=== PATIENT | female | born 1990 | race Caucasian/White ===

== ENCOUNTER 2019-03-24 10:31 | Emergency (ER) | payer OTHER, SELFPAY ==
[2019-03-24 11:05] VITALS: BP 106/66; PULSE 75; RESP 18; TEMP 36.9; O2SAT 100
--- NOTE | 2019-03-24 11:19 | ED.GENADULT ---
HPI - General Adult General Chief complaint: Upper Respiratory Infection Stated complaint: sore / swollen throat Time Seen by Provider: 03/24/19 11:20 Source: patient and RN notes reviewed Mode of arrival: ambulatory Limitations: no limitations History of Present Illness HPI narrative: This is a 28 years old female presented office for evaluation of sore throat this morning. Symptoms began with nasal congestion for 1 week. Denies fever, vomiting or diarrhea. Denies sick contact. She does smoke half a pack a day. She would like a work excuse.No treatment prior to arrival. Related Data Home Medications Medication Instructions Recorded Confirmed albuterol sulfate 1 inh INHALATION QID PRN 03/24/19 03/24/19 Allergies Allergy/AdvReac Type Severity Reaction Status Date / Time No Known Allergies Allergy Verified 03/24/19 11:14 Review of Systems Review of Systems: Narrative: CONSTITUTIONAL: Denies fever ENT: Denies ears pain CARDIOVASCULAR: Denies chest pain RESPIRATORY: Denies dyspnea, wheezing GASTROINTESTINAL: Denies abdominal pain, nausea, vomiting GENITOURINARY: Denies urinary symptoms SKIN: Denies rash MUSCULOSKELETAL: Denies acute back pain, joint pain, or myalgia. NEUROLOGIC: Denies numbness, or focal weakness. PMFSH Social History Social History (Updated 03/24/19 @ 11:26 by MICKIE Rosario) Smoking packs per day: 0.5 Smoking cigarettes per day: 10.0 Smoking status: Current every day smoker Comments At time of signature, I agree with nursing past medical, surgical, social and family history. There is no relevant family history pertinent to the presenting complaint. Exam Narrative: Exam Narrative: GENERAL: This is a well-nourished, well-developed patient, in no apparent distress. EYES: Sclera clear/white. Vision is grossly intact. EARS: External ears normal, auditory canals clear and without drainage, TMs normal without perforation. Hearing grossly intact. NOSE: External nose normal with no obvious nasal discharge, nares without redness, no rhinorrhea. THROAT: Mucous membranes moist, posterior pharynx clear wth drainage NECK: Neck supple, non-tender without lymphadenopathy, masses or thyromegaly. CARDIOVASCULAR: Regular rate and rhythm without murmurs, gallops, or rubs. RESPIRATORY: Clear to auscultation. Breath sounds equal bilaterally. No wheezes, rales, or rhonchi. GASTROINTESTINAL: Abdomen soft, non-tender, nondistended. Bowel sounds are active. No hepato-splenomegaly, or palpable masses. No guarding. SKIN: warm, intact with no suspicious lesions or rash, good texture and turgor. NEURO: awake, alert, and oriented to person, place and time. There were no obvious focal neurologic abnormalities. Steady gait [place] Coma Scale Eye Opening: Spontaneous 4 [place] Coma Scale Motor: Obeys Commands 6 [place] Coma Scale Verbal: Oriented 5 Course Vital Signs Vital signs: Vital Signs Temperature 98.5 F 03/24/19 11:05 Pulse Rate 75 03/24/19 11:05 Respiratory Rate 18 03/24/19 11:05 Blood Pressure 106/66 03/24/19 11:05 Pulse Oximetry 100 03/24/19 11:05 Temperature 98.5 F 03/24/19 11:05 Pulse Rate 75 03/24/19 11:05 Respiratory Rate 18 03/24/19 11:05 Blood Pressure 106/66 03/24/19 11:05 Pulse Oximetry 100 03/24/19 11:05 Medical Decision Making MDM Narrative Medical decision making narrative: Discharge instructions reviewed with patient, as well as provided in writing per nursing staff. The instructions also include specific and strict return/GO TO THE ER as well as f/u information. All questions have been answered, and the patient deny any further questions with discharge and discharge plan. Differential Diagnosis Differential Diagnosis: pneumonia, Allergic Rhinitis, Upper respiratory cough syndrome, Pharyngitis, Sinusitis, Bronchitis, otitis media, viral URI, Asthma/reactive airway disease, influenza Vital Signs Vital Signs: Vital Signs Tempera
== END 2019-03-24 11:30 | disposition home or self-care (01) ==
PROVIDERS: Emergency Provider Nurse Practitioner
DX: J06.9 Acute upper respiratory infection, unspecified (principal); R05 Cough; F17.200 Nicotine dependence, unspecified, uncomplicated; J45.909 Unspecified asthma, uncomplicated
CPT/HCPCS: 87081; 87880; 99213; G0463

== ENCOUNTER 2019-04-30 13:06 | Emergency (ER) | payer OTHER, SELFPAY ==
--- NOTE | 2019-04-30 13:10 | ED.FEMALEGU ---
HPI - Female Genitourinary General Chief complaint: Urogenital-Female Stated complaint: Possible Bladder infection Time Seen by Provider: 04/30/19 13:22 Source: patient and RN notes reviewed Mode of arrival: ambulatory Limitations: no limitations History of Present Illness HPI Narrative: 28-year-old female presents with concern for dysuria, frequency, urgency that started this morning. Reports taking Azo and is also currently on her menstrual period. Patient reports taking Azo 2 hours ago. MD elicited complaint: UTI Related Data Allergies Allergy/AdvReac Type Severity Reaction Status Date / Time No Known Allergies Allergy Verified 03/24/19 11:14 Review of Systems Review of Systems: Narrative: CONSTITUTIONAL: Denies malaise, chills, sweats, or fever. CARDIOVASCULAR: Denies chest pain, palpitations RESPIRATORY: Denies cough or dyspnea. GASTROINTESTINAL: Denies abdominal pain, nausea, vomiting, diarrhea GENITOURINARY: Reports dysuria, frequency, urgency, flank pain. Reports being on her menstrual period SKIN: Denies rash or itching. MUSCULOSKELETAL: Reports low back pain. Denies joint pain, or myalgia. NEUROLOGIC: Denies headache. All systems reviewed & are unremarkable except as noted in HPI and below PMFSH Social History Social History (Updated 03/24/19 @ 11:26 by MICKIE Rosario) Smoking packs per day: 0.5 Smoking cigarettes per day: 10.0 Smoking status: Current every day smoker Comments At time of signature, agree with nursing past medical, surgical, social and family history. There is no relevant family history pertinent to the presenting complaint Exam Narrative: Exam Narrative: GENERAL: Well-appearing, well-nourished, and in no acute distress. HEAD: Normocephalic. EYES: PERRLA, conjunctivae clear. NECK: Supple. No lymphadenopathy CHEST: Clear to auscultation. No respiratory distress. HEART: Regular rate and rhythm. No murmur heard. Normal peripheral pulses. ABDOMEN: Soft, nontender upon palpation, nondistended, normal active bowel sounds, no palpable or pulsatile masses, no guarding. No CVA tenderness SKIN: Warm, dry, no rash. NEURO: Alert and oriented x3. PSYCH: Normal mood and affect Course Course Emergency Course: Patient is aware of diagnosis, understands and agrees to treatment plan. Anticipatory guidance given. Patient agrees to follow-up as directed and is aware of reasons to seek care at the emergency department. Portions of this record may have been created with voice recognition software Vital Signs Vital signs: Vital Signs Temperature 98.3 F 04/30/19 13:15 Pulse Rate 83 04/30/19 13:15 Respiratory Rate 14 04/30/19 13:15 Blood Pressure 116/69 04/30/19 13:15 Pulse Oximetry 100 04/30/19 13:15 Temperature 98.3 F 04/30/19 13:15 Pulse Rate 83 04/30/19 13:15 Respiratory Rate 14 04/30/19 13:15 Blood Pressure 116/69 04/30/19 13:15 Pulse Oximetry 100 04/30/19 13:15 Reviewed. MDM - Female Genitourinary MDM Narrative Medical decision making narrative: Exam findings and UA show no acute concerns or changes; patient is non-toxic appearing and is in no distress. Patient is appropriate for outpatient treatment and follow-up. Differential Diagnosis Differential diagnosis: Likely urinary tract infection, vaginitis and cystitis Lab Data Attestation: I reviewed the patient's lab results. Critical Care Time Critical Care Time Critical Care Time: No Discharge Plan Discharge Clinical Impression: Symptoms of urinary tract infection Patient Disposition: Home, Self-Care Condition: Stable Instructions: Antibiotic Form, Urinary Tract Infection in Women (ED) Additional Instructions: We will send a urine culture off to the lab; if the culture identifies an organism that the prescribed antibiotic will not treat, you will receive a phone call from an urgent care staff member and an appropriate antibiotic will be prescribed. -Your symptoms should begin
[2019-04-30 13:15] VITALS: BP 116/69; PULSE 83; RESP 14; TEMP 36.8; O2SAT 100
== END 2019-04-30 13:30 | disposition home or self-care (01) ==
PROVIDERS: Emergency Provider Nurse Practitioner
DX: R30.0 Dysuria (principal); R35.0 Frequency of micturition; R39.15 Urgency of urination; F17.210 Nicotine dependence, cigarettes, uncomplicated
CPT/HCPCS: 81003; 87086; 99213; G0463

== ENCOUNTER 2020-10-19 15:01 | Emergency (ER) | payer OTHER, SELFPAY ==
--- NOTE | 2020-10-19 15:03 | ED.URI ---
HPI - URI/Sore Throat General Chief Complaint: Upper Respiratory Infection Stated Complaint: fever headache chills fatigue Time Seen by Provider: 10/19/20 15:37 Source: patient and RN notes reviewed Mode of arrival: ambulatory Limitations: no limitations History of Present Illness HPI Narrative: 30-year-old female presents with acute cough. Reports symptoms started yesterday with nasal drainage, persistent cough, body aches, headache. Reports a fever of 102.7. Reports she is taken [id number] medications. Reports she did 2 rapid strep test at home today which were negative. She denies any known sick contacts. She was not vaccinated for Covid. She denies shortness of breath, loss of sense of taste or smell. MD elicited complaint: fever Related Data Allergies Allergy/AdvReac Type Severity Reaction Status Date / Time No Known Allergies Allergy Verified 10/19/20 15:25 Review of Systems Review of Systems: CONSTITUTIONAL: Reports malaise, chills, fever. EYES: Denies visual changes, redness, or discharge. ENT: Reports rhinorrhea, congestion, sinus pain, otalgia and sore throat. CARDIOVASCULAR: Denies chest pain, palpitations, or edema. RESPIRATORY: Reports persistent cough. Denies dyspnea. GASTROINTESTINAL: Denies abdominal pain, nausea, vomiting, diarrhea SKIN: Denies rash or itching. MUSCULOSKELETAL: Reports myalgia. NEUROLOGIC: Reports headache. All systems reviewed & are unremarkable except as noted in HPI and below PMFSH Social History Social History (Updated 03/24/19 @ 11:26 by MICKIE Rosario) Smoking packs per day: 0.5 Smoking cigarettes per day: 10.0 Smoking status: Current every day smoker Comments At time of signature, agree with nursing past medical, surgical, social and family history. There is no relevant family history pertinent to the presenting complaint Exam Narrative: GENERAL: Well-appearing, well-nourished, and in no acute distress. HEAD: Normocephalic EYES: PERRLA, conjunctivae clear ENT: Nares clear, clear discharge. Mucous membranes moist. TM pearly varner with sharp light reflex bilaterally; no tragal tenderness. Oropharynx not erythematous without lesions. Tonsils not enlarged and without exudate, no drooling, no hoarseness, no trismus, uvula midline. NECK: Supple. No lymphadenopathy CHEST: Clear to auscultation, breath sounds equal. No wheezing, rhonchi, rales, or stridor. No respiratory distress, speaks in full sentences. Persistent cough noted HEART: Regular rate and rhythm. No murmur heard. SKIN: Warm, dry, no rash. NEURO: Alert and oriented x3. PSYCH: Normal mood and affect Course Course Emergency Course: Patient is aware of diagnosis, understands and agrees to treatment plan. Anticipatory guidance given. Patient agrees to follow-up as directed and is aware of reasons to seek care at the emergency department. Portions of this record may have been created with voice recognition software Vital Signs Vital signs: Reviewed. MDM - URI/Sore Throat MDM Narrative Medical decision making narrative: Differential diagnosis considered: Mauricio virus, strep pharyngitis, allergic rhinitis, upper respiratory tract infection, sinusitis, rhinosinusitis, nasopharyngitis. viral pharyngitis, otitis media, otitis externa, pneumonia, bronchitis, viral cough syndrome, viral syndrome, and influenza. Exam findings show no acute concerns or changes; patient is non-toxic appearing and is in no distress. Patient is appropriate for outpatient treatment and follow-up. Lab Data Attestation: I reviewed the patient's lab results. Critical Care Time Critical Care Time Critical Care Time: No Discharge Plan Discharge Clinical Impression: Cough Patient Disposition: Home, Self-Care Condition: Stable Instructions: Acute Cough (ED) Additional Instructions: PCR Covid test is pending, you should assume that your symptoms could be contagious and he received results. Strep throat culture will be sen
[2020-10-19 15:11] VITALS: BP 125/101; PULSE 96; RESP 20; TEMP 36.9; O2SAT 100
[2020-10-20 19:18] LABS: SARS-CoV-2 RNA PCR Positive
== END 2020-10-19 15:52 | disposition home or self-care (01) ==
PROVIDERS: Emergency Provider Nurse Practitioner; PCP Nurse Practitioner Family
DX: U07.1 COVID-19 (principal); F17.210 Nicotine dependence, cigarettes, uncomplicated; J45.909 Unspecified asthma, uncomplicated
CPT/HCPCS: 87081; 87426; 87880; 99213; C9803; G0463; U0003; U0005

== ENCOUNTER 2021-01-17 13:44 | Emergency (ER) | payer OTHER, SELFPAY ==
--- NOTE | 2021-01-17 13:47 | ED.URI ---
HPI - URI/Sore Throat General Chief Complaint: Upper Respiratory Infection Stated Complaint: Sore Throat/ Dizziness/Headache Time Seen by Provider: 01/17/21 13:47 Source: patient and RN notes reviewed History of Present Illness HPI Narrative: Patient is a 30-year-old female who presents the urgent care with complaints of sore throat, dizziness and headache. Patient was able to drive to the facility and is ambulating without difficulty. Patient states that everyone in her house is sick with upper respiratory stuff . Patient denies of any fever, nausea, vomiting. Denies of any known exposures to Covid, strep or influenza. Patient states that she did have Covid 2 months ago. Patient has been taking TheraFlu for her symptoms. No other acute complaints. No acute distress noted. Patient read the plan of care. Some parts of this dictation were generated by voice recognition software and may contain typographical and/or grammatical inaccuracies. Related Data Home Medications Medication Instructions Recorded Confirmed bupropion HCl mg PO 01/17/21 quetiapine 01/17/21 trazodone 01/17/21 Allergies Allergy/AdvReac Type Severity Reaction Status Date / Time No Known Allergies Allergy Verified 01/17/21 14:05 Review of Systems Review of Systems: CONSTITUTIONAL: Denies fever, chills, or sweats. EYES: Denies visual changes, redness, or discharge. ENT: Denies rhinorrhea, congestion, otalgia. Reports of sore throat CARDIOVASCULAR: Denies chest pain, palpitations, or edema. RESPIRATORY: Denies cough or dyspnea. GASTROINTESTINAL: Denies abdominal pain, nausea, vomiting, or diarrhea. GENITOURINARY: Denies dysuria or hematuria. SKIN: Denies rash or itching. MUSCULOSKELETAL: Denies back pain, joint pain, or myalgia. NEUROLOGIC: Reports of intermittent headaches and dizziness All other systems reviewed are negative, except as documented in HPI. PMFSH Social History Social History (Updated 03/24/19 @ 11:26 by MICKIE Rosario) Smoking packs per day: 0.5 Smoking cigarettes per day: 10.0 Smoking status: Current every day smoker Comments At the time of my signature, I reviewed and agree with the nursing past medical, surgical, social, and family history. There is no relevant family history pertinent to the patient complaint. Exam Narrative: GENERAL: This is a well-nourished, well-developed patient, in no apparent distress. HEAD: normocephalic, atraumatic. EYES: PERRL. Sclera clear/white. Vision is grossly intact. EARS: External ears normal, auditory canals clear and without drainage, TMs normal without perforation. Hearing grossly intact. NOSE: External nose normal with no obvious nasal discharge, nares without redness, no rhinorrhea. THROAT: Mucous membranes moist, posterior pharynx clear. Moderate postnasal drainage NECK: Neck supple CARDIOVASCULAR: Regular rate and rhythm without murmurs, gallops, or rubs. RESPIRATORY: Clear to auscultation. Breath sounds equal bilaterally. No wheezes, rales, or rhonchi. SKIN: warm, intact with no suspicious lesions or rash, good texture and turgor. NEURO: awake, alert, and oriented to person, place and time. There were no obvious focal neurologic abnormalities. EXTREMITIES: No clubbing, cyanosis, or edema. Course Vital Signs Vital signs: Vital Signs Temperature 97.8 F 01/17/21 13:58 Pulse Rate 89 01/17/21 13:58 Respiratory Rate 18 01/17/21 13:58 Blood Pressure 131/87 01/17/21 13:58 Pulse Oximetry 100 01/17/21 13:58 Temperature 97.8 F 01/17/21 13:58 Pulse Rate 89 01/17/21 13:58 Respiratory Rate 18 01/17/21 13:58 Blood Pressure 131/87 01/17/21 13:58 Pulse Oximetry 100 01/17/21 13:58 Reviewed MDM - URI/Sore Throat MDM Narrative Medical decision making narrative: Reviewed lab results with the patient. She is aware that strep swab was negative. Educated patient on culture and we will call within 72 hours if culture is positive antibioti
[2021-01-17 13:58] VITALS: BP 131/87; PULSE 89; RESP 18; TEMP 36.6; O2SAT 100
== END 2021-01-17 14:27 | disposition home or self-care (01) ==
PROVIDERS: Emergency Provider Nurse Practitioner Family; PCP Nurse Practitioner Family
DX: J02.9 Acute pharyngitis, unspecified (principal); J45.909 Unspecified asthma, uncomplicated
CPT/HCPCS: 87081; 87880; 99213; G0463

== ENCOUNTER 2021-03-09 15:43 | Emergency (ER) | payer OTHER, SELFPAY ==
[2021-03-09 15:46] VITALS: BP 113/55; PULSE 95; RESP 16; TEMP 37.1; O2SAT 100
--- NOTE | 2021-03-09 15:55 | ED.URI ---
HPI - URI/Sore Throat General Chief Complaint: Upper Respiratory Infection Stated Complaint: aches heavy chest sore throat Time Seen by Provider: 03/09/21 15:59 Source: patient History of Present Illness HPI Narrative: Patient woke up with this morning with scratchy throat runny nose and occasional cough. Patient states she has been exposed to COVID-19 through her workplace and was instructed to come in for evaluation by her employer. Patient's symptoms started approximately 8 hours ago. Patient has not take anything [id number] for her symptoms. MD elicited complaint: nasal congestion Related Data Home Medications Medication Instructions Recorded Confirmed bupropion HCl 150 mg PO DAILY 01/17/21 03/09/21 quetiapine 100 mg PO DAILY 01/17/21 03/09/21 trazodone 100 mg PO DAILY 01/17/21 03/09/21 Allergies Allergy/AdvReac Type Severity Reaction Status Date / Time No Known Allergies Allergy Verified 03/09/21 15:51 Review of Systems Review of Systems: CONSTITUTIONAL: Denies chills, or sweats. Reports fever and generalized body aches EYES: Denies visual changes, redness, or discharge. ENT: Denies otalgia. Reports nasal congestion runny nose and sore throat CARDIOVASCULAR: Denies chest pain, palpitations, or edema. RESPIRATORY: Denies dyspnea. Reports occasional cough GASTROINTESTINAL: Denies abdominal pain, nausea, vomiting, or diarrhea. GENITOURINARY: Denies dysuria or hematuria. SKIN: Denies rash or itching. MUSCULOSKELETAL: Denies back pain, joint pain, or myalgia. Reports generalized body aches NEUROLOGIC: Denies headache, numbness, or weakness. PSYCHIATRIC: Denies anxiety or depression. [facility] Social History Social History (Updated 03/24/19 @ 11:26 by MICKIE Rosario) Smoking packs per day: 0.5 Smoking cigarettes per day: 10.0 Smoking status: Current every day smoker Comments CONSTITUTIONAL: Denies fever, chills, or sweats. EYES: Denies visual changes, redness, or discharge. ENT: Denies rhinorrhea, congestion, sore throat, or otalgia. CARDIOVASCULAR: Denies chest pain, palpitations, or edema. RESPIRATORY: Denies cough or dyspnea. GASTROINTESTINAL: Denies abdominal pain, nausea, vomiting, or diarrhea. GENITOURINARY: Denies dysuria or hematuria. SKIN: Denies rash or itching. MUSCULOSKELETAL: Denies back pain, joint pain, or myalgia. NEUROLOGIC: Denies headache, numbness, or weakness. PSYCHIATRIC: Denies anxiety or depression. Exam Narrative: The patient is a well-developed, well-nourished in no acute distress. SKIN: Skin is warm and dry without erythema, swelling or exudate. There is good turgor. No tenting. HEAD: Atraumatic. Normocephalic. No temporal or scalp tenderness. EYES: Moist and bright. Sclera and conjunctivae normal. No discharge. PERRLA. Extraocular motions intact. Gross visual acuity intact. EARS: Pinna is normal shape and contour. Clear external auditory canals. TM pearly brown with good cone of light, no erythema or suppuration. Bilateral cerumen noted no gross hearing deficit. NOSE: pink, moist mucosa with good air movement. Clear rhinorrhea without nasal flaring. Septum midline. Mouth: moist mucous membranes. THROAT; mild erythema noted to posterior oropharynx with moderate postnasal drainage. Without exudate or ulceration.. Uvula midline. Normal movement of soft palate. NECK: Supple and nontender with full range of motion without discomfort. No meningeal signs. LUNGS: Equal and bilateral breath sounds without wheezes, rales or rhonchi. CHEST: The chest wall is without retractions or use of accessory muscles. HEART: Has a regular rate and rhythm without murmur, gallops, click or rub. ABDOMEN: Soft, nontender with positive active bowel sounds. No rebound tenderness. EXTREMITIES: Without cyanosis, clubbing or edema. Equal 2+ distal pulses and 2 second capillary refill noted. NEUROLOGIC: alert, active, . The patient moves all extremities with normal muscle strength. Normal muscle tone is n
== END 2021-03-09 16:05 | disposition home or self-care (01) ==
PROVIDERS: Emergency Provider Nurse Practitioner Family; PCP Nurse Practitioner Family
DX: J06.9 Acute upper respiratory infection, unspecified (principal); B34.9 Viral infection, unspecified; Z20.822 Contact with and (suspected) exposure to COVID-19; F17.210 Nicotine dependence, cigarettes, uncomplicated
CPT/HCPCS: 99211; G0463

== ENCOUNTER 2021-05-22 09:43 | Emergency (ER) | payer OTHER, SELFPAY ==
[2021-05-22 09:48] VITALS: BP 116/84; PULSE 109; RESP 20; TEMP 36.7; O2SAT 100
--- NOTE | 2021-05-22 10:07 | ED.URI ---
HPI - URI/Sore Throat General Chief Complaint: Upper Respiratory Infection Stated Complaint: Cough Time Seen by Provider: 05/22/21 10:18 Source: patient and RN notes reviewed Mode of arrival: ambulatory Limitations: no limitations History of Present Illness HPI Narrative: 30-year-old female presents concern for cough, chest congestion that started on . She also reports nasal congestion, rhinorrhea. Denies sore throat, body aches, chills, fever, sweats. Reports she had fever the first 2 days of illness. She denies any known sick contacts. She reports has been taking [id number] medication without relief. She reports coughing fits, one that caused her to vomit. MD elicited complaint: cough and sore throat Related Data Home Medications Medication Instructions Recorded Confirmed bupropion HCl 300 mg PO DAILY 01/17/21 03/09/21 quetiapine 100 mg PO DAILY 01/17/21 05/22/21 sertraline 100 mg PO DAILY 05/22/21 05/22/21 Allergies Allergy/AdvReac Type Severity Reaction Status Date / Time No Known Allergies Allergy Verified 05/22/21 10:12 Review of Systems Review of Systems: CONSTITUTIONAL: Denies malaise, chills, sweats, or fever. EYES: Denies visual changes, redness, or discharge. ENT: Reports rhinorrhea, congestion. Denies sinus pain, otalgia and sore throat. CARDIOVASCULAR: Denies chest pain, palpitations, or edema. RESPIRATORY: Reports cough, chest congestion. Denies dyspnea. GASTROINTESTINAL: Denies abdominal pain, nausea, vomiting, diarrhea SKIN: Denies rash or itching. MUSCULOSKELETAL: Denies myalgia. NEUROLOGIC: Denies headache. All systems reviewed & are unremarkable except as noted in HPI and below PMFSH Social History Social History (Updated 03/24/19 @ 11:26 by MICKIE Rosario) Smoking packs per day: 0.5 Smoking cigarettes per day: 10.0 Smoking status: Current every day smoker Comments At time of signature, agree with nursing past medical, surgical, social and family history. There is no relevant family history pertinent to the presenting complaint Exam Narrative: GENERAL: Well-appearing, well-nourished, and in no acute distress. HEAD: Normocephalic EYES: PERRLA, conjunctivae clear ENT: Nares clear, turbinates edematous and erythematous, clear discharge. Mucous membranes moist. TM pearly varner with sharp light reflex bilaterally; no tragal tenderness. Oropharynx not erythematous without lesions. Tonsils not enlarged and without exudate, no drooling, no hoarseness, no trismus, uvula midline. NECK: Supple. No lymphadenopathy CHEST: Clear to auscultation, breath sounds equal. No wheezing, rhonchi, rales, or stridor. No respiratory distress, speaks in full sentences. HEART: Regular rate and rhythm. No murmur heard. SKIN: Warm, dry, no rash. NEURO: Alert and oriented x3. PSYCH: Normal mood and affect Course Course Emergency Course: Patient is aware of diagnosis, understands and agrees to treatment plan. Anticipatory guidance given. Patient agrees to follow-up as directed and is aware of reasons to seek care at the emergency department. Portions of this record may have been created with voice recognition software Level of Care: Express Care Visit Vital Signs Vital signs: Vital Signs Temperature 98.1 F 05/22/21 09:48 Pulse Rate 109 H 05/22/21 09:48 Respiratory Rate 20 05/22/21 09:48 Blood Pressure 116/84 05/22/21 09:48 Pulse Oximetry 100 05/22/21 09:48 Temperature 98.1 F 05/22/21 09:48 Pulse Rate 109 H 05/22/21 09:48 Respiratory Rate 20 05/22/21 09:48 Blood Pressure 116/84 05/22/21 09:48 Pulse Oximetry 100 05/22/21 09:48 Reviewed. MDM - URI/Sore Throat MDM Narrative Medical decision making narrative: Differential diagnosis considered: Mauricio virus, strep pharyngitis, allergic rhinitis, upper respiratory tract infection, sinusitis, rhinosinusitis, nasopharyngitis. viral pharyngitis, otitis media, otitis externa, pneumonia, bronchitis, viral coug
== END 2021-05-22 10:30 | disposition home or self-care (01) ==
PROVIDERS: Emergency Provider Nurse Practitioner; PCP Nurse Practitioner Family
DX: J06.9 Acute upper respiratory infection, unspecified (principal); R05.9 Cough, unspecified; F17.210 Nicotine dependence, cigarettes, uncomplicated; J45.909 Unspecified asthma, uncomplicated; F41.9 Anxiety disorder, unspecified; F32.A Depression, unspecified
CPT/HCPCS: 99213; G0463

== ENCOUNTER 2021-10-22 13:29 | Emergency (ER) | payer OTHER, SELFPAY ==
--- NOTE | 2021-10-22 13:32 | ED.URI ---
HPI - URI/Sore Throat General Stated Complaint: cough congestion Time Seen by Provider: 10/22/21 13:32 Source: patient Mode of arrival: ambulatory Limitations: no limitations History of Present Illness HPI Narrative: Ms. Rolon is a 31-year-old female patient presenting to the clinic today with complaints of cough, fever, chills, sore throat, body aches, and nasal congestion. She reports no known exposure to anyone with COVID, flu, or strep. No one else at home is sick. Has not tested herself for COVID. Related Data Home Medications Medication Instructions Recorded Confirmed bupropion HCl 150 mg 24 hr tablet, 300 mg PO DAILY 01/17/21 03/09/21 extended release quetiapine 100 mg tablet 100 mg PO DAILY 01/17/21 05/22/21 sertraline 100 mg tablet 100 mg PO DAILY 05/22/21 05/22/21 Allergies Allergy/AdvReac Type Severity Reaction Status Date / Time No Known Allergies Allergy Verified 05/22/21 10:12 Review of Systems Review of Systems: Pertinent positives per HPI. Patient denies any rash, headache, visual changes, dizziness, shortness of breath, chest pain, palpitations, nausea, vomiting, diarrhea, constipation, abdominal pain, or any urinary issues. PMFSH Social History Social History Smoking packs per day: 0.5 Smoking cigarettes per day: 10.0 Smoking status: Current every day smoker Comments At the time of my signature, I reviewed and agree with the nursing past medical, surgical, social, and family history. There is no relevant family history pertinent to the patient complaint. Exam Narrative: General: Well-developed, well nourished, in no apparent distress Head: Normocephalic, atraumatic Eyes: Pupils equally round and reactive to light bilaterally, EOM intact, sclera and conjunctive clear, no discharge, lids normal Ears: TMs intact and dull, ear canals clear, no drainage, grossly hearing normal. Nose: Nares patent, clear nasal discharge, no inflammation, no sinus tenderness. Mouth: Oropharynx without lesions or masses, good dentition, MMM. Neck: Supple, trachea midline, no enlargement of anterior or posterior cervical nodes, no thyroid masses or goiter palpable. Cardio: Regular rate and rhythm, s1 and s2 normal, no murmur appreciated. Resp: Clear to auscultation bilaterally anteriorly and posteriorly, no rhonchi, rales, wheezing or rubs Course Course Emergency Course: Portions of this record may have been created with voice recognition software. Level of Care: Express Care Visit Vital Signs Vital signs: Vital signs reviewed MDM - URI/Sore Throat MDM Narrative Medical decision making narrative: At the time of visit patient is resting comfortably on the exam table. COVID testing was completed in the clinic and was negative. I suspect the patient has upper respiratory infection/viral syndrome. Supportive measures were discussed with the patient she voiced understanding of discharge instructions and agrees to the treatment plan. Differential Diagnosis Differential diagnosis: Likely upper respiratory infection, otitis media, sinusitis, viral infection, bronchitis, influenza, pharyngitis and other (COVID) Discharge Plan Discharge Clinical Impression: Viral syndrome Upper respiratory infection Qualifiers: URI type: unspecified viral URI Qualified Code(s): J06.9 - Acute upper respiratory infection, unspecified Patient Disposition: Home, Self-Care Condition: Stable Instructions: Antibiotic Form, Upper Respiratory Infection (ED), Viral Syndrome (ED) Additional Instructions: COVID testing was completed in the clinic today and was negative. Increase fluids and stay well hydrated Tylenol/motrin for pain/fever Flonase and OTC antihistamines as directed Vicks vapor rub to open sinuses Sinus rinses for congestion Cepacol spray, cough drops, throat lozenges, warm tea with honey/lemon, gargle salt water to soothe t
[2021-10-22 13:34] VITALS: BP 107/72; PULSE 88; RESP 20; TEMP 36.9; O2SAT 100
== END 2021-10-22 14:13 | disposition home or self-care (01) ==
PROVIDERS: Emergency Provider Nurse Practitioner Family; PCP Nurse Practitioner Family
DX: B34.9 Viral infection, unspecified (principal); J06.9 Acute upper respiratory infection, unspecified; F17.210 Nicotine dependence, cigarettes, uncomplicated; Z20.822 Contact with and (suspected) exposure to COVID-19
CPT/HCPCS: 87426; 99213; C9803; G0463

== ENCOUNTER 2021-12-11 08:45 | Emergency (ER) | payer OTHER, SELFPAY ==
--- NOTE | 2021-12-11 08:49 | ED.URI ---
HPI - URI/Sore Throat General Chief Complaint: Upper Respiratory Infection Stated Complaint: Sore Throat Time Seen by Provider: 12/11/21 08:49 Source: patient and RN notes reviewed History of Present Illness HPI Narrative: Patient is a 31-year-old female who presents the urgent care with complaints of a sore throat and cough. Patient brought all 3 of her children and on Saturday and they were negative for RSV and influenza. Patient states they do seem to be doing better today and did go to school. Denies of any fevers. Patient denies any nausea or vomiting. States that she has been taking Mucinex and using cough drops. No other acute complaints. No acute distress noted. Patient aware of the plan of care. Some parts of this dictation were generated by voice recognition software and may contain typographical and/or grammatical inaccuracies. Related Data Home Medications Medication Instructions Recorded Confirmed bupropion HCl 150 mg 24 hr tablet, 300 mg PO DAILY 01/17/21 12/11/21 extended release quetiapine 100 mg tablet 100 mg PO DAILY 01/17/21 12/11/21 sertraline 100 mg tablet 100 mg PO DAILY 05/22/21 12/11/21 Allergies Allergy/AdvReac Type Severity Reaction Status Date / Time No Known Allergies Allergy Verified 12/11/21 08:58 Review of Systems Review of Systems: CONSTITUTIONAL: Denies fever, chills, or sweats. EYES: Denies visual changes, redness, or discharge. ENT: Denies rhinorrhea, congestion, otalgia. Reports of sore throat CARDIOVASCULAR: Denies chest pain, palpitations, or edema. RESPIRATORY: Reports of cough without dyspnea GASTROINTESTINAL: Denies abdominal pain, nausea, vomiting, or diarrhea. GENITOURINARY: Denies dysuria or hematuria. SKIN: Denies rash or itching. MUSCULOSKELETAL: Denies back pain, joint pain, or myalgia. NEUROLOGIC: Denies headache, numbness, or weakness. All other systems reviewed are negative, except as documented in HPI. [facility] Social History Social History Smoking packs per day: 0.5 Smoking cigarettes per day: 10.0 Smoking status: Current every day smoker Comments At the time of my signature, I reviewed and agree with the nursing past medical, surgical, social, and family history. There is no relevant family history pertinent to the patient complaint. Exam Narrative: GENERAL: This is a well-nourished, well-developed patient, in no apparent distress. HEAD: normocephalic, atraumatic. EYES: PERRL. Sclera clear/white. Vision is grossly intact. EARS: External ears normal, auditory canals clear and without drainage, TMs normal without perforation. Hearing grossly intact. NOSE: External nose normal with no obvious nasal discharge, nares without redness, no rhinorrhea. THROAT: Mucous membranes moist. Moderate postnasal drainage NECK: Neck supple, non-tender without lymphadenopathy, masses or thyromegaly. CARDIOVASCULAR: Regular rate and rhythm without murmurs, gallops, or rubs. RESPIRATORY: Harsh cough Exam. Clear to auscultation. Breath sounds equal bilaterally. No wheezes, rales, or rhonchi. SKIN: warm, intact with no suspicious lesions or rash, good texture and turgor. NEURO: awake, alert, and oriented to person, place and time. There were no obvious focal neurologic abnormalities. EXTREMITIES: No clubbing, cyanosis, or edema. Course Course Level of Care: Express Care Visit Vital Signs Vital signs: Vital Signs Temperature 99.0 F 12/11/21 08:54 Pulse Rate 117 H 12/11/21 08:54 Respiratory Rate 20 12/11/21 08:54 Blood Pressure 113/88 12/11/21 08:54 Pulse Oximetry 100 12/11/21 08:54 Oxygen Delivery Room Air 12/11/21 08:54 Temperature 99.0 F 12/11/21 08:54 Pulse Rate 117 H 12/11/21 08:54 Respiratory Rate 20 12/11/21 08:54 Blood Pressure 113/88 12/11/21 08:54 Pulse Oximetry 100 12/11/21 08:54 Oxygen Delivery Room Air 12/11/21 08:54 Reviewed MDM - URI/Sore Thr
[2021-12-11 08:54] VITALS: BP 113/88; PULSE 117; RESP 20; TEMP 37.2; O2SAT 100
== END 2021-12-11 09:19 | disposition home or self-care (01) ==
PROVIDERS: Emergency Provider Nurse Practitioner Family; PCP Nurse Practitioner Family
DX: R05.9 Cough, unspecified (principal); F17.219 Nicotine dependence, cigarettes, with unspecified nicotine-induced disorders; F41.9 Anxiety disorder, unspecified; F32.A Depression, unspecified
CPT/HCPCS: 87081; 87880; 99213; G0463

== ENCOUNTER 2022-06-15 12:30 | Emergency (ER) | payer OTHER, SELFPAY ==
[2022-06-15 12:38] VITALS: BP 130/68; PULSE 86; RESP 16; TEMP 36.8; O2SAT 100
--- NOTE | 2022-06-15 12:46 | ED.DENTAL ---
HPI - Dental/Oral General Chief complaint: Dental/Oral Stated complaint: can hardly open left side mouth Time Seen by Provider: 06/15/22 12:45 Source: patient Mode of arrival: ambulatory Limitations: no limitations History of Present Illness HPI Narrative: 31 year old female presents with concern for facial pain. She reports pain the left thigh of her face front of her jaw. Reports she feels swollen on the inside of her mouth, the tissue on the inside of her cheek has become swollen and she continues to bite it which makes it more swollen. She denies fever, aches, chills, sweats. She denies pain when she chews. She denies redness, warmth of the cheek MD Complaint: tooth pain Related Data Home Medications Medication Instructions Recorded Confirmed bupropion HCl 150 mg 24 hr tablet, 300 mg PO DAILY 01/17/21 06/15/22 extended release sertraline 100 mg tablet 100 mg PO DAILY 05/22/21 06/15/22 buspirone 10 mg tablet 10 mg PO TID 06/15/22 06/15/22 lurasidone 20 mg tablet (Latuda) 20 mg PO DAILY 06/15/22 06/15/22 nicotine 21 mg/24 hr daily 21 mg topical DAILY 06/15/22 06/15/22 transdermal patch trazodone 150 mg tablet mg 06/15/22 Allergies Allergy/AdvReac Type Severity Reaction Status Date / Time No Known Allergies Allergy Verified 06/15/22 12:38 Review of Systems Review of Systems: CONSTITUTIONAL: Denies malaise, chills, sweats, or fever. EYES: Denies visual changes ENT: Denies rhinorrhea, congestion, sinus pain, otalgia or sore throat. Reports pain her mouth, on her left cheek CARDIOVASCULAR: Denies chest pain, palpitations RESPIRATORY: Denies cough or dyspnea. SKIN: Denies rash or itching. MUSCULOSKELETAL: Denies myalgia. NEUROLOGIC: Denies numbness, weakness, or headache. All systems reviewed & are unremarkable except as noted in HPI and below [facility] Social History Social History Smoking packs per day: 0.5 Smoking cigarettes per day: 10.0 Smoking status: Current every day smoker Comments At time of signature, agree with nursing past medical, surgical, social and family history. There is no relevant family history pertinent to the presenting complaint Exam Narrative: GENERAL: Well-appearing, well-nourished, and in no acute distress. HEAD: Normocephalic, atraumatic. EYES: PERRLA, sclera clear ENT: Nares clear, turbinates pink, no rhinorrhea or epistaxis. Mucous membranes moist. TM pearly varner with sharp light reflex bilaterally; no tragal tenderness. Oropharynx without erythema or lesions. Tonsils not enlarged and without exudate. No missing teeth, broken teeth, caries. Mucosal surface on the inside of the left cheek is slightly irritated excoriated. The tissue covering the 3rd molar is slightly erythematous with small amount of purulent drainage noted, tender to touch NECK: Supple. No lymphadenopathy. CHEST: No respiratory distress. Speaks in full sentences. HEART: Regular rate and rhythm. SKIN: Warm, dry, no visible rash. The face has no signs of cellulitis such as redness, warmth, tenderness NEURO: Alert and oriented x3. PSYCH: Normal mood and affect Course Course Emergency Course: Patient is aware of diagnosis, understands and agrees to treatment plan. Anticipatory guidance given. Patient agrees to follow-up as directed and is aware of reasons to seek care at the emergency department. Portions of this record may have been created with voice recognition software Level of Care: Express Care Visit Vital Signs Vital signs: Vital Signs Temperature 98.2 F 06/15/22 12:38 Pulse Rate 86 06/15/22 12:38 Respiratory Rate 16 06/15/22 12:38 Blood Pressure 130/68 06/15/22 12:38 Pulse Oximetry 100 06/15/22 12:38 Oxygen Delivery Room Air 06/15/22 12:38 Temperature 98.2 F 06/15/22 12:38 Pulse Rate 86 06/15/22 12:38 Respiratory Rate 16 06/15/22 12:38 Blood Pressure 130/68 06/15/22 12:38
== END 2022-06-15 13:00 | disposition home or self-care (01) ==
PROVIDERS: Emergency Provider Nurse Practitioner; PCP Nurse Practitioner Family
DX: K04.7 Periapical abscess without sinus (principal); K12.1 Other forms of stomatitis; F17.210 Nicotine dependence, cigarettes, uncomplicated; J45.909 Unspecified asthma, uncomplicated; F41.9 Anxiety disorder, unspecified; F32.A Depression, unspecified; Z86.16 Personal history of COVID-19
CPT/HCPCS: 99213; G0463

== ENCOUNTER 2022-11-05 11:10 | Emergency (ER) | payer OTHER, SELFPAY ==
[2022-11-05 11:20] VITALS: BP 104/79; PULSE 91; RESP 16; TEMP 36.2
[2022-11-05 11:29] VITALS: O2SAT 100
--- NOTE | 2022-11-05 11:42 | ED.URI ---
HPI - URI/Sore Throat General Chief Complaint: Upper Respiratory Infection Stated Complaint: Chest Congestion/Congestion Time Seen by Provider: 11/05/22 11:42 Source: patient, RN notes reviewed and old records reviewed Mode of arrival: ambulatory Limitations: no limitations History of Present Illness HPI Narrative: 32 year old female presents to [facility] care with complaints of 2 day history of cough, chest congestion, reports that it hurts to breath. Patient reports that she has some nasal congestion also and has been using nasal spray. Patient reports that when she lays down she is wheezing, denies any acute shortness of breath or any body aches or fevers. Patient reports past history of bronchitis and asthma. MD elicited complaint: cough and other (chest congestion and wheezing) Pertinent past history: asthma and other (bronchitis) Onset (ago): day(s) (2) Able to tolerate fluids by mouth: Yes Treatments prior to arrival: other (nasal spray) Related Data Home Medications Medication Instructions Recorded Confirmed bupropion HCl 150 mg 24 hr tablet, 300 mg PO DAILY 01/17/21 06/15/22 extended release sertraline 100 mg tablet 100 mg PO DAILY 05/22/21 06/15/22 buspirone 10 mg tablet 10 mg PO TID 06/15/22 06/15/22 lurasidone 20 mg tablet (Latuda) 20 mg PO DAILY 06/15/22 06/15/22 trazodone 150 mg tablet mg 06/15/22 Allergies Allergy/AdvReac Type Severity Reaction Status Date / Time No Known Allergies Allergy Verified 06/15/22 12:38 Review of Systems Review of Systems: CONSTITUTIONAL: Denies malaise, chills, sweats, or fever. EYES: Denies visual changes, redness, or discharge. ENT: Reports rhinorrhea, congestion, no sinus pain, otalgia, or sore throat. CARDIOVASCULAR: Denies chest pain, palpitations, or edema. RESPIRATORY: Reports cough.? Denies dyspnea, reports wheezing GASTROINTESTINAL: Denies abdominal pain, nausea, vomiting, diarrhea SKIN: Denies rash or itching. MUSCULOSKELETAL: Denies myalgia. NEUROLOGIC: Denies headache. All systems reviewed & are unremarkable except as noted in HPI and below PMFSH Past Medical History Medical History (Updated 11/06/22 @ 09:53 by Jenna Navas NP) Anxiety and depression Asthma COVID-19 11/2021 UTI (urinary tract infection) Surgical History Surgical History (Updated 11/06/22 @ 09:51 by Jenna Navas NP) Hx of appendectomy Social History Social History (Updated 11/06/22 @ 09:53 by Jenna Navas NP) Smoking packs per day: 0.5 Smoking cigarettes per day: 10.0 Smoking status: Current every day smoker Alcohol intake: unknown Substance use: unknown Gender identity (if verbalized by the patient): Female Comments At time of signature, agree with nursing past medical, surgical, social and family history. There is no relevant family history pertinent to the presenting complaint Exam Narrative: GENERAL: Well-appearing, well-nourished, and in no acute distress. HEAD: Normocephalic EYES: PERRLA, conjunctivae clear ENT: Nares clear, turbinates edematous and erythematous, clear discharge. Mucous membranes moist. TM pearly varner with dull light reflex bilaterally; no tragal tenderness. Oropharynx erythematous without lesions. Tonsils not enlarged and without exudate, no drooling, no hoarseness, no trismus, uvula midline.post nasal drainage NECK: Supple. No lymphadenopathy CHEST: wheezes on auscultation, breath sounds equal.positive for wheezing,no rhonchi, rales, or stridor. No respiratory distress, speaks in full sentences.cough, SAO2 100% on room air HEART: Regular rate and rhythm. No murmur heard. SKIN: Warm, dry, no rash. NEURO: Alert and oriented x3. PSYCH: Normal mood and affect Course Course Emergency Course: Patient is aware of diagnosis, understands and agrees to treatment plan.? Anticipatory guidance given.? Patient agrees to follow-up as directed and is aware of reasons to seek care at the em
== END 2022-11-05 12:08 | disposition home or self-care (01) ==
PROVIDERS: Emergency Provider Registered Nurse; PCP Nurse Practitioner Family
DX: J40 Bronchitis, not specified as acute or chronic (principal); R09.81 Nasal congestion; F17.210 Nicotine dependence, cigarettes, uncomplicated; J45.909 Unspecified asthma, uncomplicated; F41.9 Anxiety disorder, unspecified; F32.A Depression, unspecified; Z86.16 Personal history of COVID-19
CPT/HCPCS: 99213; G0463

== ENCOUNTER 2022-11-11 13:44 | Emergency (ER) | payer OTHER, SELFPAY ==
[2022-11-11 13:50] VITALS: BP 98/71; PULSE 92; RESP 20; TEMP 36.7; O2SAT 100
--- NOTE | 2022-11-11 13:56 | ED.EYEPROB ---
HPI - Eye Problem General Chief complaint: Eye Problems Stated complaint: pink eye History of Present Illness HPI Narrative: PATIENT PRESENTS WITH REDNESS AND ITCHING TO RIGHT EYE. NO EYE INJURY NO VISION PROBLEMS DOES NOT WEAR CONTACTS. Related Data Home Medications Medication Instructions Recorded Confirmed bupropion HCl 150 mg 24 hr tablet, 300 mg PO DAILY 01/17/21 11/11/22 extended release buspirone 10 mg tablet 10 mg PO TID 06/15/22 11/11/22 trazodone 150 mg tablet 150 mg PO DIRECTED 06/15/22 divalproex 250 mg tablet,delayed 250 mg PO DIRECTED 11/11/22 11/11/22 release fluoxetine 40 mg capsule 40 mg PO DIRECTED 11/11/22 11/11/22 Allergies Allergy/AdvReac Type Severity Reaction Status Date / Time No Known Allergies Allergy Verified 11/11/22 13:55 Review of Systems Review of Systems: CONSTITUTIONAL: DENIES FEVER, CHILLS, OR SWEATS. EYES: DENIES VISUAL CHANGES, REDNESS, OR DISCHARGE. ENT: DENIES RHINORRHEA, CONGESTION, SORE THROAT, OR OTALGIA. CARDIOVASCULAR: DENIES CHEST PAIN, PALPITATIONS, OR EDEMA. RESPIRATORY: DENIES COUGH OR DYSPNEA. GASTROINTESTINAL: DENIES ABDOMINAL PAIN, NAUSEA, VOMITING, OR DIARRHEA. GENITOURINARY: DENIES DYSURIA OR HEMATURIA. SKIN: DENIES RASH OR ITCHING. MUSCULOSKELETAL: DENIES BACK PAIN, JOINT PAIN, OR MYALGIA. NEUROLOGIC: DENIES HEADACHE, NUMBNESS, OR WEAKNESS. PSYCHIATRIC: DENIES ANXIETY OR DEPRESSION. FORMERLY [facility], 1928–1983 Past Medical History Medical History (Updated 11/11/22 @ 13:58 by MICKIE Wren) Anxiety and depression Asthma COVID-19 11/2021 UTI (urinary tract infection) Surgical History Surgical History (Updated 11/06/22 @ 09:51 by Jenna Navas NP) Hx of appendectomy Social History Social History (Updated 11/06/22 @ 09:53 by Jenna Navas NP) Smoking packs per day: 0.5 Smoking cigarettes per day: 10.0 Smoking status: Current every day smoker Alcohol intake: unknown Substance use: unknown Gender identity (if verbalized by the patient): Female Comments AT TIME OF SIGNATURE, AGREE WITH NURSING PAST MEDICAL, SURGICAL, SOCIAL AND FAMILY HISTORY. THERE IS NO RELEVANT FAMILY HISTORY PERTINENT TO THE PRESENTING COMPLAINT Exam Narrative: GENERAL: WELL-APPEARING, WELL-NOURISHED, AND IN NO ACUTE DISTRESS. HEAD: NORMOCEPHALIC, ATRAUMATIC. EYES: PERRLA AND EOMI. ENT: NARES CLEAR, NO RHINORRHEA OR EPISTAXIS. MUCOUS MEMBRANES MOIST. NECK: SUPPLE. CHEST: CLEAR TO AUSCULTATION. NO RESPIRATORY DISTRESS. HEART: REGULAR RATE AND RHYTHM. NO MURMUR HEARD. NORMAL PERIPHERAL PULSES. ABDOMEN: SOFT, NONTENDER, NONDISTENDED, NORMAL ACTIVE BOWEL SOUNDS. EXTREMITIES: NORMAL RANGE OF MOTION. NO EDEMA. SKIN: WARM, DRY, NO RASH. NEURO: NO FOCAL DEFICITS. ALERT AND ORIENTED X3. ALANNA COMA SCALE EYE OPENING: SPONTANEOUS 4 ALANNA COMA SCALE MOTOR: OBEYS COMMANDS 6 ALANNA COMA SCALE VERBAL: ORIENTED 5 ALANNA COMA SCALE TOTAL 15 Eyes: Conjunctivae: conjunctival abnormality (CONJUNCTIVITIS) right Course Course Level of Care: Express Care Visit Discharge Plan Discharge Clinical Impression: Bacterial conjunctivitis Patient Disposition: Home, Self-Care Condition: Stable Instructions: Antibiotic Form, Conjunctivitis (ED) Additional Instructions: CONJUNCTIVITIS IS SPREAD BY [id number] CONTACT OR BY TOUCHING A CONTAMINATED SURFACE. YOU CAN USE ARTIFICIAL TEARS, COLD AND WARM COMPRESSES-USE, DIFFERENT COMPRESS FOR EACH EYE, AND INCREASE HYGIENE SUCH HAND-WASHING. DO NOT WEAR CONTACTS FOR 1 WEEK, IF APPLICABLE. DO NOT RETURN FOR 24 HOURS TO DAYCARE, SCHOOL, WORKPLACE FOR 24 HOURS AFTER FIRST ANTIBIOTIC DOSE. CHANGE BEDDING. FOLLOW UP WITH EYE DOCTOR IN 24-48 HOURS -IF YOU HAVE ANY WORSENING OF SYMPTOMS OR ANY OTHER CONCERNS PLEASE GO TO THE ED IMMEDIATELY. Prescriptions: New erythromycin 5 mg/gram (0.5 %) ointment 1 applic RIGHT EYE Q8H 5 Days Qty: 3.5 0RF No Action trazodone 150 mg tablet 150 mg P
== END 2022-11-11 14:00 | disposition home or self-care (01) ==
PROVIDERS: Emergency Provider Nurse Practitioner Family; PCP Nurse Practitioner Family
DX: H10.9 Unspecified conjunctivitis (principal); J45.909 Unspecified asthma, uncomplicated; F41.9 Anxiety disorder, unspecified; F32.A Depression, unspecified; Z86.16 Personal history of COVID-19; F17.210 Nicotine dependence, cigarettes, uncomplicated
CPT/HCPCS: 99213; G0463

== ENCOUNTER 2023-01-21 09:20 | Emergency (ER) | payer OTHER, SELFPAY ==
[2023-01-21 09:26] VITALS: BP 122/77; PULSE 99; RESP 20; TEMP 36.4; O2SAT 99
--- NOTE | 2023-01-21 09:27 | ED.GENADULT ---
HPI - General Adult General Chief complaint: Back Pain/Injury Stated complaint: lower back pain Time Seen by Provider: 01/21/23 09:27 Source: patient, RN notes reviewed and old records reviewed Mode of arrival: ambulatory Limitations: no limitations History of Present Illness HPI narrative: 32-year-old female presents to [facility] with complaints of left lower back pain that started 40 minutes ago after lifting approximately 30 lb our patient states felt a pull. Patient has not taken anything for symptoms. MD complaint: Left lower back pain Onset (ago): minute(s) (40) Related Data Home Medications Medication Instructions Recorded Confirmed bupropion HCl 150 mg 24 hr tablet, 300 mg PO DAILY 01/17/21 01/21/23 extended release buspirone 10 mg tablet 10 mg PO TID 06/15/22 01/21/23 trazodone 150 mg tablet 150 mg PO DIRECTED 06/15/22 01/21/23 divalproex 250 mg tablet,delayed 250 mg PO DIRECTED 11/11/22 01/21/23 release fluoxetine 40 mg capsule 40 mg PO DIRECTED 11/11/22 01/21/23 cariprazine 3 mg capsule (Vraylar) 3 mg PO DAILY 01/21/23 01/21/23 Allergies Allergy/AdvReac Type Severity Reaction Status Date / Time No Known Allergies Allergy Verified 01/21/23 09:29 Review of Systems Constitutional: Constitutional: Reports no additional constitutional complaints Eyes: Eyes: Reports no additional eye complaints ENT: Reports system reviewed and no additional complaints, except as documented Cardiovascular: Cardiovascular: Reports no additional cardiovascular complaints Respiratory: Respiratory: Reports no additional respiratory complaints Musculoskeletal: Musculoskeletal: Denies atrophy, Denies deformity, Denies arthralgias, Denies limited range of motion, Reports muscle cramps, Denies numbness and Denies radiating pain into limb Neurologic: Reports system reviewed and no additional complaints, except as documented [facility] Past Medical History Medical History (Updated 01/21/23 @ 09:36 by Marianne Diaz APRN) Anxiety and depression Asthma COVID-19 11/2021 UTI (urinary tract infection) Surgical History Surgical History (Updated 11/06/22 @ 09:51 by Jenna Navas NP) Hx of appendectomy Social History Social History (Updated 11/06/22 @ 09:53 by Jenna Navas NP) Smoking packs per day: 0.5 Smoking cigarettes per day: 10.0 Smoking status: Current every day smoker Alcohol intake: unknown Substance use: unknown Gender identity (if verbalized by the patient): Female Comments At the time of my signature, I reviewed and agree with the nursing past medical, surgical, social, and family history. There is no relevant family history pertinent to the patient complaint. Exam Const: General: cooperative, healthy appearing, no acute distress and well nourished Nutritional Appearance: well nourished Orientation/consciousness: patient oriented x3 Limitations: no limitations HENMT: Head: normal to inspection and normocephalic Ears: external ears normal, TM's normal bilaterally, mastoids normal and Abnormal EAC present Face/Nose/Sinus: normal facial exam Face and sinus: normal facial exam Mouth: Yes Normal oral and palatal mucosa present, Yes oropharynx normal and Yes moist mucous membranes Throat: posterior oropharynx normal, tonsils normal, uvula midline and no uvular edema Eyes: General: appearance normal, both eyes and all related structures Sclera: sclerae normal Pupils: Equal, round and reactive pupils present Resp: Effort & Inspection: normal respiratory effort, able to speak in complete sentences, no audible wheezes, no cough, no respiratory distress and no retractions Cardio: Rate: regular rate Back/Spine/Pelvis: Back: no CVA tenderness, No erythema, No warmth, No ecchymosis and back tenderness Cervical Spine: normal cervical lordosis Thoracic/Lumbar Spine: thoracic and lumbar spine normal to inspection, straight leg raise negative bilaterally, thoraco-lumbar spasm
== END 2023-01-21 09:42 | disposition home or self-care (01) ==
PROVIDERS: Emergency Provider Registered Nurse; PCP Nurse Practitioner Family
DX: S39.012A Strain of muscle, fascia and tendon of lower back, initial encounter (principal); X50.0XXA Overexertion from strenuous movement or load, initial encounter; J45.909 Unspecified asthma, uncomplicated; F41.9 Anxiety disorder, unspecified; F32.A Depression, unspecified; Z86.16 Personal history of COVID-19; F17.210 Nicotine dependence, cigarettes, uncomplicated
CPT/HCPCS: 99213; G0463

== ENCOUNTER 2023-02-20 10:21 | Emergency (ER) | payer OTHER, SELFPAY ==
[2023-02-20 10:34] VITALS: BP 123/64; PULSE 94; RESP 16; TEMP 36.5; O2SAT 100
--- NOTE | 2023-02-20 10:49 | ED.GENADULT ---
HPI - General Adult General Chief complaint: Upper Respiratory Infection Stated complaint: Sore Throat Source: patient, RN notes reviewed and old records reviewed Mode of arrival: ambulatory Limitations: no limitations History of Present Illness HPI narrative: 32-year-old female presents to [facility] with complaint of sore throat for 1 week then yesterday started having hoarseness. Patient denies any other symptoms. Patient taking [id number] medications with no relief MD complaint: sore throat Onset (ago): week(s) (1) Related Data Home Medications Medication Instructions Recorded Confirmed bupropion HCl 150 mg 24 hr tablet, 300 mg PO DAILY 01/17/21 01/21/23 extended release buspirone 10 mg tablet 10 mg PO TID 06/15/22 01/21/23 trazodone 150 mg tablet 150 mg PO DIRECTED 06/15/22 01/21/23 divalproex 250 mg tablet,delayed 250 mg PO DIRECTED 11/11/22 01/21/23 release fluoxetine 40 mg capsule 40 mg PO DIRECTED 11/11/22 01/21/23 cariprazine 3 mg capsule (Vraylar) 3 mg PO DAILY 01/21/23 01/21/23 Allergies Allergy/AdvReac Type Severity Reaction Status Date / Time No Known Allergies Allergy Verified 01/21/23 09:29 Review of Systems Constitutional: Constitutional: Reports no additional constitutional complaints, Denies body ache(s), Denies chills, Denies fatigue, Denies fever(s) and Denies headache(s) Eyes: Eyes: Reports no additional eye complaints and Denies blurry vision ENT: Reports system reviewed and no additional complaints, except as documented, Denies vertigo, Denies dizziness, Denies ear discharge, Denies otalgia, Denies facial pain, Denies headache(s), Denies nasal congestion, Denies nasal discharge, Denies sinus pain, Denies sinus pressure and Reports sore throat Comments: hoarseness Cardiovascular: Cardiovascular: Reports no additional cardiovascular complaints, Denies chest pain, Denies chest pain at rest, Denies rapid heart rate and Denies dyspnea Respiratory: Respiratory: Reports no additional respiratory complaints, Denies chest congestion, Denies cough, Denies pain on inspiration, Denies pain with cough and Denies dyspnea Gastrointestinal: Gastrointestinal: Denies abdominal pain, Denies diarrhea, Denies nausea and Denies vomiting Integumentary/Breasts: Skin/Breast: Denies rash Neurologic: Reports system reviewed and no additional complaints, except as documented, Denies vertigo, Denies dizziness and Denies headache(s) Endocrine: Endocrine: Denies fatigue PMFSH Past Medical History Medical History Anxiety and depression Asthma COVID-19 11/2021 UTI (urinary tract infection) Surgical History Surgical History Hx of appendectomy Social History Social History Smoking packs per day: 0.5 Smoking cigarettes per day: 10.0 Smoking status: Current every day smoker Alcohol intake: unknown Substance use: unknown Gender identity (if verbalized by the patient): Female Comments At the time of my signature, I reviewed and agree with the nursing past medical, surgical, social, and family history. There is no relevant family history pertinent to the patient complaint. Exam Const: General: cooperative, healthy appearing, no acute distress and well nourished Nutritional Appearance: well nourished Orientation/consciousness: patient oriented x3 Limitations: no limitations HENMT: Head: normal to inspection and normocephalic Ears: external ears normal, TM's normal bilaterally, mastoids normal and Abnormal EAC present Face/Nose/Sinus: normal facial exam Face and sinus: normal facial exam Mouth: Yes Normal oral and palatal mucosa present, Yes oropharynx normal and Yes moist mucous membranes Throat: tonsils normal, uvula midline and no uvular edema Other: posterior orapharynx erythema Eyes: Gene
== END 2023-02-20 11:03 | disposition home or self-care (01) ==
PROVIDERS: Emergency Provider Registered Nurse; PCP Nurse Practitioner Family
DX: J04.0 Acute laryngitis (principal); F17.210 Nicotine dependence, cigarettes, uncomplicated; J45.909 Unspecified asthma, uncomplicated; F41.9 Anxiety disorder, unspecified; F32.A Depression, unspecified; Z86.16 Personal history of COVID-19
CPT/HCPCS: 87081; 87880; 99213; G0463

== ENCOUNTER 2023-04-10 14:52 | Emergency (ER) | payer OTHER, SELFPAY ==
[2023-04-10 14:57] VITALS: BP 133/74; PULSE 82; RESP 16; TEMP 36.4; O2SAT 99
--- NOTE | 2023-04-10 14:58 | ED.URI ---
HPI - URI/Sore Throat General Chief Complaint: Upper Respiratory Infection Stated Complaint: Vomiting/Body Aches Source: patient and RN notes reviewed Mode of arrival: ambulatory Limitations: no limitations History of Present Illness HPI Narrative: Patient is a 32-year-old female who presents to the [facility] with complaints of nausea, vomiting, and diarrhea for the past 2 days. She also endorses chills and generalized body aches. She denies abdominal pain. Denies blood in the stool or vomit. She does report increased fatigue and mild headaches. Denies sore throat, cough, congestion. Denies recent fevers. Denies urinary symptoms. Unsure of any known sick contacts. Related Data Home Medications Medication Instructions Recorded Confirmed bupropion HCl 150 mg 24 hr tablet, 300 mg PO DAILY 01/17/21 01/21/23 extended release buspirone 10 mg tablet 10 mg PO TID 06/15/22 01/21/23 trazodone 150 mg tablet 150 mg PO DIRECTED 06/15/22 01/21/23 divalproex 250 mg tablet,delayed 250 mg PO DIRECTED 11/11/22 01/21/23 release fluoxetine 40 mg capsule 40 mg PO DIRECTED 11/11/22 01/21/23 cariprazine 3 mg capsule (Vraylar) 3 mg PO DAILY 01/21/23 01/21/23 bupropion HCl 300 mg 24 hr tablet, mg PO 04/10/23 extended release docusate sodium 100 mg capsule mg PO 04/10/23 sumatriptan succinate 50 mg tablet mg PO 04/10/23 Allergies Allergy/AdvReac Type Severity Reaction Status Date / Time No Known Allergies Allergy Verified 04/10/23 15:00 Review of Systems Review of Systems: CONSTITUTIONAL: Denies fever or sweats. Reports chills. EYES: Denies visual changes, redness, or discharge. ENT: Denies otalgia and sore throat CARDIOVASCULAR: Denies chest pain, palpitations, or edema. RESPIRATORY: Denies cough or dyspnea. GASTROINTESTINAL: Denies abdominal pain, but reports nausea, vomiting, and diarrhea. GENITOURINARY: Denies dysuria or hematuria. SKIN: Denies rash or itching. MUSCULOSKELETAL: Denies back pain, joint pain. Reports myalgia. NEUROLOGIC: Reports headache but denies numbness or weakness. Pertinent positives per HPI. [facility] Past Medical History Medical History Anxiety and depression Asthma COVID-19 11/2021 UTI (urinary tract infection) Surgical History Surgical History Hx of appendectomy Social History Social History Smoking packs per day: 0.5 Smoking cigarettes per day: 10.0 Smoking status: Current every day smoker Alcohol intake: unknown Substance use: unknown Gender identity (if verbalized by the patient): Female Comments At the time of my signature, I reviewed and agree with the nursing past medical, surgical, social, and family history. There is no relevant family history pertinent to the patient complaint. Exam Narrative: GENERAL: This is a well-nourished, well-developed patient, in no apparent distress. HEAD: normocephalic, atraumatic. EYES: Sclera clear/white. Vision is grossly intact. EARS: External ears normal, auditory canals clear and without drainage. Hearing grossly intact. NOSE: External nose normal with no obvious nasal discharge, nares without redness, no rhinorrhea. THROAT: Mucous membranes moist, posterior pharynx clear. NECK: Neck supple, non-tender without lymphadenopathy, masses or thyromegaly. CARDIOVASCULAR: Regular rate and rhythm without murmurs, gallops, or rubs. RESPIRATORY: Clear to auscultation. Breath sounds equal bilaterally. No wheezes, rales, or rhonchi. GASTROINTESTINAL: Abdomen soft, non-tender, nondistended. Bowel sounds are active. No hepato-splenomegaly, or palpable masses. No guarding. SKIN: warm, intact with no suspicious lesions or rash, good texture and turgor. NEURO: awake, alert, and oriented to person, place and time. There were no obvious focal neurologic abnormaliti
== END 2023-04-10 15:10 | disposition home or self-care (01) ==
PROVIDERS: Emergency Provider Nurse Practitioner; PCP Nurse Practitioner Family
DX: A08.4 Viral intestinal infection, unspecified (principal); F17.210 Nicotine dependence, cigarettes, uncomplicated; J45.909 Unspecified asthma, uncomplicated; F41.9 Anxiety disorder, unspecified; F32.A Depression, unspecified; Z86.16 Personal history of COVID-19
CPT/HCPCS: 99213; G0463

== ENCOUNTER 2023-05-18 13:44 | Emergency (ER) | payer OTHER, SELFPAY ==
[2023-05-18 13:49] VITALS: BP 120/70; PULSE 66; RESP 20; TEMP 36.6; O2SAT 100
[2023-05-18 14:05] VITALS: BP 120/70; PULSE 66; RESP 20; TEMP 36.6; O2SAT 100
--- NOTE | 2023-05-18 14:06 | ED.ABDPAIN ---
HPI - Abdominal Pain General Chief Complaint: Urogenital-Female Stated Complaint: Urinary Problem History of Present Illness HPI narrative: Pt is a 32 y/o female, presents to with right flank pain, onset of symptoms last HS, persistent today. she has increased frequency and hesitancy as well but denies burning or urgency with urination. she has not had a fever. she has a hx of renal stones that have presented similarly in the past. She has no hx of renal stones requiring intervention. She took a dose of Cipro and Azo this morning without relief. she denies associated fevers and she has no know STI or concerns. Related Data Home Medications Medication Instructions Recorded Confirmed cariprazine 3 mg capsule (Vraylar) 3 mg PO DAILY 01/21/23 05/18/23 bupropion HCl 300 mg 24 hr tablet, 300 mg PO QAM 04/10/23 05/18/23 extended release docusate sodium 100 mg capsule 100 mg PO DAILY 04/10/23 05/18/23 sumatriptan succinate 50 mg tablet 50 mg PO DAILY 04/10/23 05/18/23 buspirone 15 mg tablet 15 mg PO BID 05/18/23 05/18/23 dicyclomine 10 mg capsule 10 mg PO TID PRN ABDOMINAL CRAMPING 05/18/23 05/18/23 duloxetine 60 mg capsule,delayed 60 mg PO QAM 05/18/23 05/18/23 release Allergies Allergy/AdvReac Type Severity Reaction Status Date / Time No Known Allergies Allergy Verified 05/18/23 13:53 Review of Systems Genitourinary: Comments: refer to [facility] Past Medical History Medical History Anxiety and depression Asthma COVID-19 11/2021 UTI (urinary tract infection) Surgical History Surgical History Hx of appendectomy Social History Social History Smoking packs per day: 0.5 Smoking cigarettes per day: 10.0 Smoking status: Current every day smoker Alcohol intake: unknown Substance use: unknown Gender identity (if verbalized by the patient): Female Exam Const: General: healthy appearing and alert Nutritional Appearance: obese Orientation/consciousness: patient oriented x3 Other: pt appears to be in mild pain distress HENMT: Head: normal to inspection Face and sinus: normal facial exam Eyes: Conjunctivae: conjunctivae normal EOM: EOMs intact bilaterally Neck: Neck: normal visual inspection, no lymphadenopathy and no meningeal signs Chest: Chest palpation & inspection: normal inspection of the chest Resp: Effort & Inspection: normal respiratory effort Auscultation: clear to auscultation bilaterally Cardio: Rate: regular rate Rhythm: regular rhythm GI: GI Palp: Yes Soft to palpation, No Tenderness to palpation present (GI), No Guarding due to palpation present (GI), No Rigid due to palpation, No Hernia present, No Palpable mass present and No Rebound tenderness present Auscultation: normal bowel sounds Other: right CVA TTP reported Back/Spine/Pelvis: Back: CVA tenderness (right side only) Other: no rash noted Skin: General skin exam: normal color Rashes: no rashes Neuro: General: patient oriented x3, moves all extremities, no meningeal signs, no focal motor deficits and CN's II-XI intact bilaterally Cranial nerves: Yes Nystagmus not present Speech: normal speech Course Course Level of Care: [facility] Care Visit ([id number]) Vital Signs Vital signs: Vital Signs Temperature 36.6 C 05/18/23 13:49 Pulse Rate 66 05/18/23 13:49 Respiratory Rate 20 05/18/23 13:49 Blood Pressure 120/70 05/18/23 13:49 Pulse Oximetry 100 05/18/23 13:49 Oxygen Delivery Room Air 05/18/23 13:49 Temperature 36.6 C 05/18/23 14:05 Pulse Rate 66 05/18/23 14:05 Respiratory Rate 20 05/18/23 14:05 Blood Pressure 120/70 05/18/23 14:05 Pulse Oximetry 100 05/18/23 14:05 Oxygen Delivery Room Air 05/18/23 14:05 MDM - Abdominal Pain MDM Narrative Medical decision
== END 2023-05-18 14:15 | disposition short-term general hospital (02) ==
PROVIDERS: Emergency Provider Nurse Practitioner Family; PCP Nurse Practitioner Family
DX: R10.9 Unspecified abdominal pain (principal); F17.210 Nicotine dependence, cigarettes, uncomplicated; J45.909 Unspecified asthma, uncomplicated; F41.9 Anxiety disorder, unspecified; F32.A Depression, unspecified; Z86.16 Personal history of COVID-19
CPT/HCPCS: 81003; 99212; G0463

== ENCOUNTER 2023-08-12 08:02 | Emergency (ER) | payer OTHER, SELFPAY ==
[2023-08-12 08:13] VITALS: BP 102/69; PULSE 87; RESP 16; TEMP 37.1; O2SAT 100
--- NOTE | 2023-08-12 08:13 | ED.URI ---
HPI - URI/Sore Throat General Chief Complaint: Upper Respiratory Infection Stated Complaint: chills/aches/cough/congestion Time Seen by Provider: 08/12/23 08:15 Source: patient and RN notes reviewed Mode of arrival: ambulatory Limitations: no limitations History of Present Illness HPI Narrative: 33-year-old female presented for complaint of headache, subjective fever, nasal congestion, and cough and body aches over the past 3 days. Took sumatriptan since onset, migraine is resolved today. Says cough is getting worse and chest feels tight. She denies shortness of breath, wheezing, nausea, vomiting, diarrhea or lethargy. MD elicited complaint: cough Related Data Allergies Allergy/AdvReac Type Severity Reaction Status Date / Time No Known Allergies Allergy Verified 05/18/23 13:53 Review of Systems Review of Systems: CONSTITUTIONAL: Endorses malaise, chills, sweats, fever EYES: Denies visual changes, redness, or discharge ENT: Reports rhinorrhea, congestion, denies sinus pain, otalgia, sore throat CARDIOVASCULAR: Denies chest pain, palpitations, edema RESPIRATORY: Reports cough, post nasal drainage. Denies dyspnea GASTROINTESTINAL: Denies abdominal pain, nausea, vomiting, diarrhea SKIN: Denies rash or itching MUSCULOSKELETAL: Endorses myalgia NEUROLOGIC: Endorses headache PMFSH Past Medical History Medical History Anxiety and depression Asthma COVID-19 11/2021 UTI (urinary tract infection) Surgical History Surgical History Hx of appendectomy Social History Social History Smoking packs per day: 0.5 Smoking cigarettes per day: 10.0 Smoking status: Current every day smoker Alcohol intake: unknown Substance use: unknown Gender identity (if verbalized by the patient): Female Exam Narrative: GENERAL: well-appearing, nontoxic no acute distress. EYES: PERRLA, conjunctivae clear ENT: Mucous membranes moist. TM pearly varner with dull light reflex bilaterally; no tragal tenderness. Oropharynx not erythematous without lesions or exudate, no drooling, no hoarseness, no trismus, uvula midline. CHEST: Clear to auscultation, breath sounds equal. No wheezing, rhonchi, rales, or stridor. No respiratory distress, speaks in full sentences. HEART: Regular rate and rhythm. No murmur heard. SKIN: Warm, dry, no rash. NEURO: Alert and oriented x3. PSYCH: Normal mood and affect Course Course Emergency Course: Patient is aware of diagnosis, understands and agrees to treatment plan. Anticipatory guidance given. Patient agrees to follow-up as directed and is aware of reasons to seek care at the emergency department. Portions of this record may have been created with voice recognition software Level of Care: Express Care Visit Vital Signs Vital signs: Vital Signs Temperature 98.7 F 08/12/23 08:13 Pulse Rate 87 08/12/23 08:13 Respiratory Rate 16 08/12/23 08:13 Blood Pressure 102/69 08/12/23 08:13 Pulse Oximetry 100 08/12/23 08:13 Oxygen Delivery Room Air 08/12/23 08:13 Temperature 98.7 F 08/12/23 08:13 Pulse Rate 87 08/12/23 08:13 Respiratory Rate 16 08/12/23 08:13 Blood Pressure 102/69 08/12/23 08:13 Pulse Oximetry 100 08/12/23 08:13 Oxygen Delivery Room Air 08/12/23 08:13 reviewed MDM - URI/Sore Throat MDM Narrative Medical decision making narrative: results of POS COVID reviewed with patient. Discussed physical exam findings. Advised supportive measures and signs/symptoms to go to the ER. Pt is appropriate for outpt treatment and f/u. Differential Diagnosis Differential diagnosis: Likely upper respiratory infection, sinusitis, viral infection, bronchitis and influenza Discharge Plan Discharge Clinical Impression: COVID-19 Patient Disposition: Home, Self-Care Condition: Stable
== END 2023-08-12 08:50 | disposition home or self-care (01) ==
PROVIDERS: Emergency Provider Nurse Practitioner Family; PCP Nurse Practitioner Family
DX: U07.1 COVID-19 (principal); F17.210 Nicotine dependence, cigarettes, uncomplicated; J45.909 Unspecified asthma, uncomplicated
CPT/HCPCS: 87426; 99213; G0463

== ENCOUNTER 2023-09-12 10:58 | Emergency (ER) | payer OTHER, SELFPAY ==
--- NOTE | ~2023-09-12 | XR_ITS ---
XR chest 2V Ordering provider: MICKIE Castaneda History: 33 years Female with . right anterior chest wall pain-pleuritic x 2 hours. smoker . Comparison: None. FINDINGS: MEDIASTINUM: The cardiac silhouette is not enlarged. LUNGS: No infiltrates, effusions or pneumothorax. OTHER: No free air under the diaphragm. IMPRESSION: No acute cardiopulmonary pathology. Reviewed, dictated and finalized at location A.
[2023-09-12 11:12] VITALS: BP 118/80; PULSE 83; RESP 18; TEMP 36.3; O2SAT 100
--- NOTE | 2023-09-12 11:15 | PC.NURSE ---
at 1058 during initial assessment did state is supposed to take multiple medications for mental health but has not taken for awhile.
--- NOTE | 2023-09-12 11:17 | ED.GENADULT ---
[facility] - General Adult General Chief complaint: Unspecified Stated complaint: Chest Pain History of Present Illness [facility] narrative: patient is a 33-year-old female, without significant past medical history, presents to [facility] with 1 day history of right anterior chest pain that she describes as improved when lying down, worse when reaching forward with her hands are when taking a deep breath as when smoking her vape pen. She denies associated fevers or chills, she has no shortness of breath, she denies traumatic injuries or falls. She has no history of prior lung disease, she is not asthmatic. She has not attempted any modifying factors. She denies chance of . Related Data Allergies Allergy/AdvReac Type Severity Reaction Status Date / Time No Known Allergies Allergy Verified 09/12/23 11:05 Review of Systems Respiratory: Comments: Refer to [facility] Past Medical History Medical History Anxiety and depression Asthma COVID-19 11/2021 UTI (urinary tract infection) Surgical History Surgical History Hx of appendectomy Social History Social History Smoking packs per day: 0.5 Smoking cigarettes per day: 10.0 Smoking status: Current every day smoker Alcohol intake: unknown Substance use: unknown Gender identity (if verbalized by the patient): Female Exam Const: General: cooperative, healthy appearing, comfortable and no acute distress Nutritional Appearance: average body habitus Orientation/consciousness: oriented to person, oriented to place, oriented to time and patient oriented x3 Limitations: no limitations HENMT: Head: normal to inspection, No palpable skull fracture present and normocephalic Ears: hearing grossly normal bilaterally, external ears normal and TM's normal bilaterally Face and sinus: normal facial exam and sinuses nontender Mouth: Yes Normal oral and palatal mucosa present, Yes lip normal and Yes tongue normal Teeth and gingiva: dentition normal Eyes: General: appearance normal, both eyes and all related structures Conjunctivae: conjunctivae normal Neck: Neck: normal visual inspection, full ROM, no lymphadenopathy and no meningeal signs Thyroid: thyroid normal Lymphatic: no lymphadenopathy noted Resp: Effort & Inspection: normal respiratory effort Auscultation: clear to auscultation bilaterally Other: patient is tender palpation over the right anterior chest wall along the right sternal border. There is no crepitus or subcutaneous emphysema palpable. No discoloration or rash noted. Cardio: Rate: regular rate Rhythm: regular rhythm Heart sounds: S1 normal heart sound present and S2 normal heart sound present Peripheral pulses: Peripheral pulses 2+ throughout Skin: General skin exam: normal color Rashes: no rashes Wounds: no wounds Neuro: General: oriented to person, oriented to place, oriented to time and patient oriented x3 Cranial nerves: Yes CN's II-XII intact bilaterally Cognition (Neuro): normal cognition Motor exam (neuro): 5/5 motor strength present throughout and Pronator motor function not present Extrem: General: normal to inspection, full ROM and capillary refill normal Course Course Emergency Course: chest x-ray is negative. Will treat with short steroid course for costochondritis/ pleurisy, follow-up with PCP if symptoms not resolving, your condition worsens. Patient is agreeable plan. She is encouraged to stop smoking. Level of Care: Express Care Visit ([id number]) Vital Signs Vital signs: Vital Signs Temperature 36.3 C L 09/12/23 11:12 Pulse Rate 83 09/12/23 11:12 Respiratory Rate 18 09/12/23 11:12 Blood Pressure 118/80 09/12/23 11:12 Pulse Oximetry 100 09/12/23 11:12 Oxygen Delivery Room Air 09/12/23 11:12 Temperature 36.3 C L 09/12/23
== END 2023-09-12 11:58 | disposition home or self-care (01) ==
PROVIDERS: Emergency Provider Nurse Practitioner Family; PCP Nurse Practitioner Family
DX: M94.0 Chondrocostal junction syndrome [Tietze] (principal); J45.909 Unspecified asthma, uncomplicated; F17.290 Nicotine dependence, other tobacco product, uncomplicated; Z86.16 Personal history of COVID-19
CPT/HCPCS: 71046; 99213; G0463

== ENCOUNTER 2024-01-30 12:52 | Emergency (ER) | payer OTHER, SELFPAY ==
[2024-01-30 13:08] VITALS: BP 114/70; PULSE 68; RESP 16; TEMP 37; O2SAT 100
--- NOTE | 2024-01-30 13:16 | ED.SKABFB ---
HPI - Skin/Abscess/Foreign Bdy General Chief complaint: Skin/Abscess/Foreign Body Stated complaint: Skin Problem Time Seen by Provider: 01/30/24 13:16 Source: patient, RN notes reviewed and old records reviewed Mode of arrival: ambulatory Limitations: no limitations History of Present Illness HPI narrative: 33year old female accompanied by children presents to [facility] with complaints of battling hair lice for the past 2 months herself and her girls. She reports that she has itchy scalp. Mother reports that she has use Rid X, Nix, and Vamousse OTC treatments and reports daughter was sent home today from school due to finding of hair lice. Mother states that is at home at present time stripping and washing all the bed clothing. MD complaint: other (hair lice) Onset (ago): month(s) ( reports has been dealing with for 2 months used OTC products but keep reoccurring) Associated symptoms: itching Treatments prior to arrival: other (3 different OTC head lice treatments used) Related Data Home Medications ?Medication ?Instructions ?Recorded ?Confirmed ?Last Taken ?Type bupropion HCl 300 mg 24 hr tablet, mg PO 01/30/24 Unknown History extended release buspirone 15 mg tablet mg 01/30/24 Unknown History cariprazine 3 mg capsule (Vraylar) mg 01/30/24 Unknown History fluoxetine 40 mg capsule mg 01/30/24 Unknown History sumatriptan succinate 100 mg tablet mg PO 01/30/24 Unknown History Allergies Allergy/AdvReac Type Severity Reaction Status Date / Time No Known Allergies Allergy Verified 01/30/24 12:55 Review of Systems Review of Systems: CONSTITUTIONAL: Denies fever, chills, or sweats. CARDIOVASCULAR: Denies chest pain, palpitations, or edema. RESPIRATORY: Denies cough or dyspnea. SKIN: Reports itchy scalp with reoccurring head lice MUSCULOSKELETAL: Denies joint pain or myalgia. NEUROLOGIC: Denies headache, numbness, or weakness. All systems reviewed & are unremarkable except as noted in HPI and below PMFSH Past Medical History Medical History COVID-19 11/2021 UTI (urinary tract infection) Anxiety and depression Asthma Surgical History Surgical History Hx of appendectomy Social History Social History Smoking packs per day: 0.5 Smoking cigarettes per day: 10.0 Smoking status: Current every day smoker Alcohol intake: unknown Substance use: unknown Gender identity (if verbalized by the patient): Female Comments At time of signature, agree with nursing past medical, surgical, social and family history. There is no relevant family history pertinent to the presenting complaint Exam Narrative: GENERAL: Well-appearing, well-nourished,appears clean and in no acute distress. HEAD: Normocephalic, atraumatic. EYES: PERRLA, conjunctivae clear, and EOMI. ENT: Mucous membranes moist. Oropharynx without edema, erythema or lesions. NECK: Supple. No lymphadenopathy CHEST: Clear to auscultation. No respiratory distress.SAO2 100% on room air HEART: Regular rate and rhythm. SKIN: Warm, dry.?Nits noted underneath hair at scalp with no actual lice noted. NEURO:? Alert and oriented x3. PSYCH: Normal mood and affect Course Course Emergency Course: Patient is aware of diagnosis, understands and agrees to treatment plan.? Anticipatory guidance given.? Patient agrees to follow-up as directed and is aware of reasons to seek care at the emergency department. Portions of this record may have been created with voice recognition software Level of Care: Express Care Visit Vital Signs Vital signs: Vital Signs Temperature 37.0 C 01/30/24 13:08 Pulse Rate 68 01/30/24 13:08 Respiratory Rate 16 01/30/24 13:08 Blood Pressure 114/70 01/30/24 13:08 Pulse Oximetry 100 01/30/24 13:08 Oxygen Delivery Room Air 01/30/24 13:08 Temperature 37.0 C 01/30/24 13:08 Pulse Rate 68 01/30/24 13:08 Respiratory Rate 16 01/30/24 13:08 Blood Pressure 114/70 01/30/24 13:08 Pulse Oximetry 100 01/30/24 13:08 Oxygen Delivery Room Air 01/30/24 13:08 Reviewed MDM - Skin/Abscess/Foreign Bdy MDM Narrative Medical decision making narrative: Does not appear at this time to be erythema multiforme, bullous, SJS, TEN; no evidence at this time to suggest RMSF, endocarditis or Lyme disease; patient looks well, nontoxic and is tolerating oral intake; no neurologic signs or symptoms; no headache, photophobia or neck pain; afebrile; appropriate for initial outpatient treatment; discussed the importance of follow-up, patient agrees; question, viral exanthema, contact dermatitis, allergic dermatitis, eczema, urticaria.. No soft palate or uvula edema, no tongue, lip edema or other mucosal involvement, no respiratory compromise, no stridor, no wheezing, no wheezing, no history of syncope, no hypotension, no nausea, vomiting, or diarrhea.? Instructed patient to go to nearest ER immediately for any worsening symptoms including but not limited to: fever, spreading rash, pain, sore throat, headache, dizziness, chest pain, trouble breathing, or any symptoms concerning to the patient. Differential Diagnosis Differential diagnosis: Likely dermatophytosis, eczema, contact dermatitis and other (head lice) Medical Records Attestation: I reviewed the patient's medical records. Critical Care Time Critical Care Time Critical Care Time: No Discharge Plan Discharge Clinical Impression: Head lice Patient Disposition: Home, Self-Care Condition: Stable Instructions: Antibiotic Form, Pediculosis (ED) Additional Instructions: Use permethrin as prescribed apply tight plastic bag over scalp after application of permethrin cleansing protocol as recommended Patient Language: Albanian Prescriptions: New permethrin 5 % cream 1 applic topical Q14D Qty: 60 0RF Rx Instructions: apply second treatment 14 days after first treatment if live lice remain permethrin 5 % cream 1 applic topical Q14D Qty: 60 0RF Rx Instructions: apply second treatment 14 days after first treatment if live lice remain No Action prednisone 20 mg tablet 40 mg PO DAILY 5 Days Qty: 10 0RF fluoxetine 40 mg capsule sumatriptan succinate 100 mg tablet PO buspirone 15 mg tablet bupropion HCl 300 mg tablet extended release 24 hr PO Vraylar 3 mg capsule Follow-up/Referrals: Xavi,Izabel Damon APN [Primary Care Provider] - Time of Disposition: 14:00 Quality [place] Coma Scale Eyes: Open Verbal: Oriented and Alert Motor: Follows Commands [place] Coma Total Score: 15
== END 2024-01-30 14:10 | disposition home or self-care (01) ==
PROVIDERS: Emergency Provider Registered Nurse; PCP Nurse Practitioner Family
DX: B85.0 Pediculosis due to Pediculus humanus capitis (principal); F17.210 Nicotine dependence, cigarettes, uncomplicated; J45.909 Unspecified asthma, uncomplicated; Z86.16 Personal history of COVID-19
CPT/HCPCS: 99213; G0463

== ENCOUNTER 2024-11-05 12:31 | Emergency (ER) | payer OTHER, SELFPAY ==
--- OUTSIDE RECORDS SUMMARY | 2024-11-05 12:33 | XMS_ITS | Clinical Summary ---
Author Organization [facility] Address [address] [place] [address] Phone Care Team Providers Care Rail Equipment Operator Name Role Phone Izabel Hurley JONATAN PENDLETON Primary Care Provider [phone] Allergies Active Allergy Reactions Criticality Noted Date Comments Venlafaxine Nausea 07/23/2023 Medications HYDROXYZINE HCL PO Take by mouth. Activ e triamcinolone (KENALOG) 0.1 % Cream Apply 1 Tube 3 times daily. Application Site: arms and trunk (Description and Location) 45 g 7 Active busPIRone (BUSPAR) 15 MG Tablet Take 15 mg by mouth 3 times daily. Active traZODone (DESYREL) 100 MG Tablet Take 50 mg by mouth nightly. Active ARIPiprazole (Abilify) 2 MG Tablet Take 2 mg by mouth in the morning and at bedtime. Active FLUoxetine (PROzac) 20 MG Capsule Take 40 mg by mouth daily. Active LORazepam (ATIVAN) 1 MG TabletIndicatio ns:Serotonin syndrome Take 1 Tablet by mouth every 8 hours as needed for Anxiety. 30 Tablet 3 Active buPROPion (WELLBUTRIN) 300 MG TABLET SR 24 HR XL tablet Take 300 mg by mouth every morning. Active dicyclomine (BENTYL) 10 MG Capsule Take 10 mg by mouth 3 times daily. Active docusate sodium (COLACE) 100 MG Capsule Take 100 mg by mouth 2 times daily. Active ferrous sulfate 325 (65 Fe) MG Tablet Take 325 mg by mouth daily. Active methocarbamol (ROBAXIN) 500 MG Tablet Take 1,000 mg by mouth 2 times daily. Active SUMAtriptan (IMITREX) 50 MG Tablet Take 50 mg by mouth once as needed. Use as directed. May repeat dose in 2 hours if headache recurs. Active Cariprazine HCl (Vraylar) 3 MG Capsule Take by mouth. Activ e naproxen (NAPROSYN) 500 MG Tablet Take 1 Tablet by mouth 2 times daily as needed for Mild or more severe pain. 20 Tablet Active Active Problems No known active problems Encounters Date Type Department Care Team Description 10/14/2024 4:36 PM CDT - 10/14/2024 6:14 PM CDT Emergency [facility] [address] [place] [address] Tessa Morris APRN, JONATAN Sprain of right shoulder, unspecified shoulder sprain type, initial encounter Discharge Disposition: Discharged to home or Selfcare 10/14/2024 Travel 09/08/2024 8:07 AM CDT - 09/08/2024 10:06 AM CDT Emergency [facility] [address] [place] [address] Nathan Vincent MD Acute bronchitis, unspecified organism Discharge Disposition: Discharged to home or Selfcare 09/08/2024 Travel from Last 3 Months Immunizations Immunization Administration Dates Next Due TDAP Vaccine 09/07/2016 Family History Medical History Relation Name Comments Hypertension Father Heart Attack Maternal Grandmother Heart Disease Maternal Grandmother Breast Cancer Mother Colon Cancer Paternal Grandmother Diabetes Paternal Grandmother Relation Name Status Comments Father Maternal Grandmother Mother Paternal Grandmother Social History Tobacco Use Types Packs/Day Years Used Date Smoking Tobacco: Every Day Cigarettes 0.5 12 Smokeless Tobacco: Never Tobacco Cessation:Ready to Q uit: Not Asked; Counseling Given: Not Answered Alcohol Use Standard Drinks/Week Comments No 0 (1 standard drink = 0.6 oz pur e alcohol) Sexually Active Control Partners Comments Not Currently Male Comments No Sex and Gender Information Value Date Recorded Sex Assigned at Not on file Legal Sex Female 10:44 PM CDT Gender Identity Not on file Sexual Orientation Not on file Last Filed Vital Signs Vital Sign Reading Time Taken Comments Blood Pressure 138/75 10/14/2024 4:33 PM CDT Pulse 80 10/14/2024 4:33 PM CDT Temperature 36.1 C (97 F) 10/14/2024 4:33 PM CDT Respiratory Rate 16 10/14/2024 4:33 PM CDT Oxygen Saturation 100% 10/14/2024 4:33 PM CDT Inhaled Oxygen Concentration - - Weight 99.8 kg (220 lb) 10/14/2024 4:33 PM CDT Height 160 cm (5' 3) 10/14/2024 4:33 PM CDT Body Mass Index 38.97 10/14/2024 4:33 PM CDT Plan of Treatment Health Maintenance Due Date Last Done Comments Hepatitis C Virus (HCV) Screening 1992 Pneumococcal Immunization Combined (1 of 2 - PCV) 07/29/2011 Pap Smear 2013 Human Papillomavirus (HPV) Immunization (1 - 3-dose SCDM series) 07/29/2019 Cervical Cancer Screening (CCS) 2022 HPV/Cotest 2022 Influenza Immunization (#1) 2024 SARS-COV-2 Immunization ( season) 2024 Td Immunization Every 10 Years (Adults With 1 Tdap) 06/23/2028 06/23/2018, 09/07/2016 Respiratory Syncytial Virus (RSV) Immunization (Adult) (1 - 1-dose 75+ series) 07/29/2067 Hepatitis B Immunization Completed 994, 1992, 1992 DTaP/Tdap/Td Immunization Discontinued 2018, 09/07/2016, 09/13/1997, Additional history exists Meningococcal Immunization (ACWY) Aged Out No longer eligible based on patient's age to complete this topic Rotavirus Immunization Aged Out No lo nger eligible based on patient's age to complete this topic Procedures Procedure Name Priority Date/Time Associated Diagnosis Comments XR SHOULDER COMPLETE RIGHT STAT 10/14/2024 4:58 PM CDT SPLINT APPLICATION Routine 10/14/2024 4: 48 PM CDT XR CHEST SINGLE VIEW PORTABLE STAT 09/08/2024 9:20 AM CDT BLUE TOP TUBE STAT 09/08/2024 8:28 AM CDT CBC WITH AUTO DIFFERENTIAL STAT 09/08/2024 8:28 AM CDT EXTRA TUBES STAT 09/08/2024 8:28 AM CDT TROPONIN I, HIGH SENSITIVITY (HSTRP) STAT 09/08/2024 8:28 AM CDT CMP (COMPREHENSIVE METABOLIC PANEL) STAT 09/08/2024 8:28 AM CDT COMPLETE BLOOD COUNT (CBC) WITH DIFF STAT 09/08/2024 8:28 AM CDT HUMAN CHORIONIC GONADOTROPIN SCRN SERUM STAT 09/08/2024 8:28 AM CDT EKG 12 LEAD STAT 09/08/2024 8:19 AM CDT EKG SCAN 09/08/2024 12:00 AM CDT from Last 3 Months Results * XR SHOULDER COMPLETE RIGHT (10/14/2024 4:58 PM CDT) Anatomical Region Laterality Modality UPPER EXTREMITY, shoulder Right Digita l Radiography 10/14/2024 5:28 PM CDT Impressions 10/14/2024 5:31 PM CDT IMPRESSION: No acute abnormality. Narrative 10/14/2024 5:31 PM CDT EXAM DESCRIPTION: XR SHOULDER COMPLETE RIGHT REASON FOR STUDY: pain in right shoulder x 1.5 months. NKI. pt states pain increases with movement. pt states intermittent numbness/tingling in right arm. TECHNIQUE: 4 radiographic views of the right shoulder. COMPARISON: None FINDINGS: No fracture or dislocation is seen. The glenohumeral joint appears well preserved. Surrounding soft tissues appear unremarkable. No abnormality is seen of the visualized portions of the right lung. THIS IS AN ELECTRONICALLY VERIFIED FINAL REPORT 10/14/2024 5:28 PM - Electronically signed by Connor Willams M.D. KH: VINCENT Report ID: [id number] Reading Location: [id number] Procedure Note Connor Willams MD - 10/14/2024 EXAM DESCRIPTION: XR SHOULDER COMPLETE RIGHT REASON FOR STUDY: pain in right shoulder x 1.5 months. NKI. pt states pain increases with movement. pt states intermittent numbness/tingling in right arm. TECHNIQUE: 4 radiographic views of the right shoulder. COMPARISON: None FINDINGS: No fracture or dislocation is seen. The glenohumeral joint appears well preserved. Surrounding soft tissues appear unremarkable. No abnormality is seen of the visualized portions of the right lung. THIS IS AN ELECTRONICALLY VERIFIED FINAL REPORT 10/14/2024 5:28 PM - Electronically signed by Connor Willams M.D. KH: VINCENT Report ID: [id number] Reading Location: [id number] IMPRESSION: No acute abnormality. Tessa Morris APRN, CNP IMG DIAGNOSTIC ORDERA BLES Final Result * Splint Application (10/14/2024 4:48 PM CDT) Narrative Gurinder Abdi MD - 10/14/2024 4:48 PM CDT Gurinder Abdi MD 10/15/2024 2:44 AM Splint Application Performed by: Tessa Morris APRN, CNP Authorized by: Tessa Morris APRN, CNP Consent: Consent obtained: Verbal Consent given by: Patient Risks, benefits, and alternatives were discussed: yes Risks discussed: Discoloration, numbness, pain and swelling Alternatives discussed: No treatment, delayed treatment and referral [place] protocol: Procedure explained and questions answered to patient or proxy's satisfaction: yes Imaging studies available: yes Patient identity confirmed: Verbally with patient and arm band Pre-procedure details: Distal neurologic exam: Normal Distal perfusion: distal pulses strong and brisk capillary refill Procedure details: Location: Shoulder Shoulder location: R shoulder Supplies: Sling Post-procedure details: Distal neurologic exam: Normal Distal perfusion: distal pulses strong and brisk capillary refill Procedure completion: Tolerated well, no immediate complications Tessa Morris APRN, CNP PROCEDURE/MINOR SURGI NICK ORDERABLES Final Result * XR CHEST SINGLE VIEW PORTABLE (09/08/2024 9:20 AM CDT) Anatomical Region Laterality Modality Chest N/A Digital Radiogra phy 09/08/2024 9:40 AM CDT Impressions 09/08/2024 9:42 AM CDT IMPRESSION: No acute cardiopulmonary abnormality. Narrative 09/08/2024 9:42 AM CDT EXAM DESCRIPTION: XR CHEST SINGLE VIEW PORTABLE REASON FOR STUDY: generalized chest pressures, shortness of breath, and nausea starting this morning arround 0600. Hx. asthma TECHNIQUE: Single radiographic view(s) of the chest. COMPARISON: No prior FINDINGS: LUNGS: Pulmonary vascularity appears normal. No infiltrate or effusion. Costophrenic angles are sharp. HEART/MEDIASTINUM: Cardiac silhouette normal in size. Mediastinal and hilar contours appear normal. LINES/TUBES: None. BONES: No acute osseous abnormality. THIS IS AN ELECTRONICALLY VERIFIED FINAL REPORT 09/08/2024 9:40 AM - Electronically signed by Matt Huang M.D. MJ: FRANCA Report ID: [id number] Reading Location: [id number] Procedure Note Matt Huang MD - 09/08/2024 EXAM DESCRIPTION: XR CHEST SINGLE VIEW PORTABLE REASON FOR STUDY: generalized chest pressures, shortness of breath, and nausea starting this morning arround 0600. Hx. asthma TECHNIQUE: Single radiographic view(s) of the chest. COMPARISON: No prior FINDINGS: LUNGS: Pulmonary vascularity appears normal. No infiltrate or effusion. Costophrenic angles are sharp. HEART/MEDIASTINUM: Cardiac silhouette normal in size. Mediastinal and hilar contours appear normal. LINES/TUBES: None. BONES: No acute osseous abnormality. THIS IS AN ELECTRONICALLY VERIFIED FINAL REPORT 09/08/2024 9:40 AM - Electronically signed by Matt Huang M.D. MJ: FRANCA Report ID: [id number] Reading Location: [place] [id number] IMPRESSION: No acute cardiopulmonary abnormality. us Nathan Vincent MD IMG DIAGNOSTIC ORDERABLES Final Result * TROPONIN I, HIGH SENSITIVITY (HSTRP) (09/08/2024 8:28 AM CDT) TROPONIN I, HIGH SENSITIVITY- ROBERT <3 <=14 ng/L 09/08/2024 9:10 AM CDT [facility] Comment: High-sensitivity troponin I results are reported in ng/L making the result appear to be 1,000 times higher than the contemporary troponin I value which is reported in ng/ml. Results from Robert. Blood Venipuncture / Unknown 09/08/2024 8:28 AM CDT 09/08/2024 8:38 AM CDT us Nathan Vincent MD CHEMISTRY ORDERABLES Katherin l Result [facility] [address] [place] [address] * Blue Top Tube (09/08/2024 8:28 AM CDT) Blood No Phlebotomy Charged / Unknown 09/08/2024 8:28 AM CDT 09/08/2024 8:40 AM CDT us Nathan Vincent MD HEMATOLOGY ORDERABLES Fin al Result [facility] [address] [place] [address] * (ABNORMAL) CBC with Auto Differential (09/08/2024 8:28 AM CDT) WBC 11.62 4.00 - 12.00 10(3)/mcL 09/08/2024 9:06 AM CDT [facility] RBC 4.56 3.80 - 5.30 10(6)/[facility] 09/08/2024 9:06 AM CDT [facility] HEMOGLOBIN (HGB) 10.2(L) 12.0 - 15.8 g/dL 09/08/2024 9:06 AM CDT [facility] HEMATOCRIT (HCT) 34.3(L) 36.0 - 47.0 % 09/08/2024 9:06 AM CDT [facility] MCV 75.2(L) 82.0 - 96.0 fL 09/08/2024 9:06 AM CDT [facility] MCH 22.4(L) 26.0 - 34.0 pg 09/08/2024 9:06 AM CDT [facility] MCHC 29.7(L) 31.0 - 36.0 g/dL 09/08/2024 9:06 AM CDT [facility] PLATELET COUNT 470(H) 140 - 440 10(3)/[facility] 09/08/2024 9:06 AM CDT [facility] RDW 14.8 11.8 - 15.5 % 09/08/2024 9:06 AM CDT [facility] MPV 10.7 9.7 - 12.4 fL 09/08/2024 9:06 AM CDT [facility] NEUTROPHILS 71.4 47.0 - 73.0 % 09/08/2024 9:06 AM CDT [facility] LYMPHOCYTES 18.7 18.0 - 42.0 % 09/08/2024 9:06 AM CDT [facility] MONOCYTES 6.6 4.0 - 12.0 % 09/08/2024 9:06 AM CDT [facility] EOSINOPHILS 1.8 0.0 - 5.0 % 09/08/2024 9:06 AM CDT [facility] BASOPHILS 0.9 0.0 - 1.0 % 09/08/2024 9:06 AM CDT [facility] IMMATURE GRANULOCYTE 0.6(H) 0.0 - 0.4 % 09/08/2024 9:06 AM CDT [facility] Comment:Immature Granulocyte s includes Metamyelocytes, Myelocytes, and Promyelocytes. ABSOLUTE NEUTROPHILS 8.29(H) 1.60 - 7.70 10(3)/[facility] 09/08/2024 9:06 AM CDT [facility] ABSOLUTE LYMPHOCYTES 2.17 1.30 - 3.20 10(3)/[facility] 09/08/2024 9:06 AM CDT [facility] ABSOLUTE MONOCYTES 0.77 0.20 - 1.00 10(3)/[facility] 09/08/2024 9:06 AM CDT [facility] ABSOLUTE EOSINOPHIL 0.21 0.00 - 0.40 10(3)/[facility] 09/08/2024 9:06 AM CDT [facility] ABSOLUTE BASOPHILS 0.11(H) 0.00 - 0.10 10(3)/[facility] 09/08/2024 9:06 AM CDT [facility] ABSOLUTE IMMATURE GRANULOCYTE 0.07(H) 0.00 - 0.03 10 (3) mcL. 09/08/2024 9:06 AM CDT [facility] NRBC PER 100 WBC 0 09/09/19 9:06 AM CDT [facility] RESULTS ARE CONSISTENT WITH PERIPHERAL SMEAR REVIEW Yes 09/08/2024 9:06 AM CDT [facility] OVALOCYTES Present 09/08/2024 9:06 AM CDT [facility] Blood Venipuncture / Unknown 09/08/2024 8:28 AM CDT 09/08/2024 8:38 AM CDT Narrative [facility] - 09/08/2024 9:06 AM CDT hypochromia us Nathan Vincent MD HEMATOLOGY ORDERABLES Fin al Result [facility] [address] [place] [address] * Human Chorionic Gonadotropin Scrn Serum [id number] (09/08/2024 8:28 AM CDT) Pathologist [facility] PREG-HCG Negative Negative 09/08/2024 8:57 AM CDT [facility] Blood Venipuncture / Unknown 09/08/2024 8:28 AM CDT 09/08/2024 8:38 AM CDT us Nathan Vincent MD CHEMISTRY ORDERABLES Katherin l Result [facility] [address] [place] [address] * (ABNORMAL) CMP (Comprehensive Metabolic Panel) (09/08/2024 8:28 AM CDT) [facility] SODIUM 139 136 - 145 mmol/L 09/08/2024 9:05 AM CDT [facility] POTASSIUM 3.6 3.5 - 5.1 mmol/L 09/08/2024 9:05 AM CDT [facility] CHLORIDE 107 98 - 107 mmol/L 09/08/2024 9:05 AM CDT [facility] CO2, VENOUS 23 22 - 30 mmol/L 09/08/2024 9:05 AM CDT [facility] ANION GAP 12.6 <18.0 mmol/L 09/08/2024 9:05 AM CDT [facility] GLUCOSE 94 70 - 99 mg/dL 09/08/2024 9:05 AM CDT [facility] BUN 11 5 - 18 mg/dL 09/08/2024 9:05 AM CDT [facility] CREATININE, BLOOD 0.78 0.60 - 1.00 mg/dL 09/08/2024 9:05 AM CDT [facility] BUN/CREATININE RATIO 14 12 - 20 ratio 09/08/2024 9:05 AM CDT [facility] TOTAL PROTEIN 8.2(H) 6.0 - 8.0 g/dL 09/08/2024 9:05 AM CDT [facility] ALBUMIN 4.5 3.5 - 5.0 g/dL 09/08/2024 9:05 AM CDT [facility] A/G RATIO 1.2 1.0 - 2.2 09/08/2024 9:05 AM CDT [facility] CALCIUM 9.1 8.7 - 10.5 mg/dL 09/08/2024 9:05 AM CDT [facility] T BILI 0.4 0.2 - 1.2 mg/dL 09/08/2024 9:05 AM CDT [facility] SGOT (AST) 14 <43 U/L 09/08/2024 9:05 AM CDT [facility] SGPT (ALT) 13 <56 U/L 09/08/2024 9:05 AM CDT [facility] ALKALINE PHOSPHATASE 88 40 - 150 U/L 09/08/2024 9:05 AM CDT [facility] GFR, ESTIMATED >60 >=60 09/08/2024 9:05 AM CDT [facility] Comment: Creatinine Clearance is the preferred criteria for selecting drug dose adjustments in renally impaired patients. The GFR is provided as additional pertinent clinical information. GFR is reported in mL/min/1.73 sq m. Calculation based on the Chronic Kidney Disease Epidemiology Collaboration (CKD- EPI) equation refit without adjustment for race. GFR, EST. >60 >=60 025 9:05 AM CDT [facility] GFR, EST. NONAFRICAN >60 >=60 09/08/2024 9:05 AM CDT [facility] Blood Venipuncture / Unknown 09/08/2024 8:28 AM CDT 09/08/2024 8:38 AM CDT us Nathan Vincent MD CHEMISTRY ORDERABLES Katherin l Result [facility] [address] [place] [address] * EKG 12 LEAD (09/08/2024 8:19 AM CDT) Ventricular Rate 71 BPM EXTERNAL EKG Atrial Rate 71 BPM EXTERNAL EKG P-R Interval 130 ms EXTERNAL EKG QRS Duration 72 ms EXTERNAL EKG Q-T Duration 394 ms EXTERNAL EKG QTC CALCULATION 428 ms EXTERNAL EKG P [place] 35 degrees EXTERNAL EKG R [place] 32 degrees EXTERNAL EKG T [place] 17 degrees EXTERNAL EKG 09/08/2024 8:19 AM CDT Impressions EXTERNAL EKG - 09/11/2024 12:20 PM CDT Normal sinus rhythm Normal ECG No previous ECGs available Confirmed by Jeanette Calderon ([id number]) on 09/11/2024 12:19:59 PM Narrative Procedure Note Jeanette Calderon MD PhD - 09/11/2024 IMPRESSION: Normal sinus rhythm Normal ECG No previous ECGs available Confirmed by Jeanette Calderon ([id number]) on 09/11/2024 12:19:59 PM us Nathan Vincent MD IMG ECG ORDERABLES Final Result Performing Organization Address City/[facility]/ZIP Co de Phone Number EXTERNAL EKG * EKG SCAN (09/08/2024 12:00 AM CDT) 09/08/2024 us Provider Scan IMG ECG ORDERABLES Final Result RESULTING AGENCY from Last 3 Months Insurance MEDICAID [place] Advance Directives * Full Code (Latest Code Status on File) Date Activated Date Inactivated Comments 09/05/2016 6:25 PM 09/07/2016 5:20 PM CPR-Full Orion atment: FULL ARREST: Attempt Resuscitation/CPR wit intubation and mechanical ventilation. PRE-ARREST: Use entire range of life support measures to stabilize the patient. * Full Code Date Activated Date Inactivated Comments 09/03/2016 11:41 AM 09/03/2016 2:38 PM CPR-Full Tr eatment: FULL ARREST: Attempt Resuscitation/CPR wit intubation and mechanical ventilation. PRE-ARREST: Use entire range of life support measures to stabilize the patient. * Full Code Date Activated Date Inactivated Comments 08/18/2016 1:33 PM 08/18/2016 7:41 PM CPR-Full Treat ment: FULL ARREST: Attempt Resuscitation/CPR wit intubation and mechanical ventilation. PRE-ARREST: Use entire range of life support measures to stabilize the patient. * Full Code Date Activated Date Inactivated Comments 08/17/2016 7:52 AM 08/17/2016 2:11 PM CPR-Full Orion atment: FULL ARREST: Attempt Resuscitation/CPR wit intubation and mechanical ventilation. PRE-ARREST: Use entire range of life support measures to stabilize the patient. * Full Code Date Activated Date Inactivated Comments 08/10/2016 4:47 PM 08/10/2016 8:51 PM CPR-Full Orion atment: FULL ARREST: Attempt Resuscitation/CPR wit intubation and mechanical ventilation. PRE-ARREST: Use entire range of life support measures to stabilize the patient. Care Teams Rail Equipment Operator Relationship Specialty Start Date End Date Izabel Hurley APRN, JONATAN PCP - General Family Medicine 07/17/23
--- OUTSIDE RECORDS SUMMARY | 2024-11-05 12:33 | XMS_ITS | Clinical Summary ---
Author Organization [facility] Address [address] [place] [address] Care Team Providers Care Network Operations Lead Name Role Phone Izabel Hurley NP Primary Care Provider [phone] Allergies No known active allergies Medications albuterol HFA (PROVENTIL HFA,VENTOLIN HFA,PROAIR HFA) 90 mcg/actuation inhalerIndications :Exercise-Induced Bronchospasm Prevention as needed Active buPROPion XL (WELLBUTRIN XL) 150 mg 24 hr tabletIndications: Anxiety with Depression Take 1 tablet (150 mg total) by mouth daily 30 tablet 06/07/19 23 Active Additional Information Patient taking differently: 300 mgoral Daily, Indications: Anxiety with Depression, Reported on 08/24/2022 busPIRone (BUSPAR) 10 mg tabletIndications: Generalized Anxiety Disorder Take 1 tablet (10 mg total) by mouth 3 (three) times a day 90 tablet 06/07/19 23 Active FLUoxetine (PROzac) 40 mg capsuleIndications :depression Take 1 capsule (40 mg total) by mouth daily 30 capsule 06/07/19 23 Active lurasidone (LATUDA) 20 mg tabletIndications: agitation Take 1 tablet (20 mg total) by mouth daily with dinner 30 tablet 06/07/19 23 Active traZODone (DESYREL) 150 mg tabletIndications: insomnia associated with depression Take 1 tablet (150 mg total) by mouth nightly 30 tablet 06/07/19 23 Active Additional Information Patient taking differently: 50 mgoral Nightly, Indications: insomnia associated with depression, Reported on 08/24/[address] (DEPAKOTE) 500 mg EC tablet Take 1 tablet (500 mg total) by mouth 2 (two) times a day Active sulfamethoxazole-t rimethoprim (BACTRIM DS) 800-160 mg per tablet Take by mouth 2 (two) times a day Active naproxen (NAPROSYN) 500 mg tablet Take 1 tablet (500 mg total) by mouth 2 (two) times a day with meals 30 tablet 03/18/19 24 Active lidocaine (LIDODERM) 5 % Place 1 patch on the skin daily for 14 days Remove & discard patch within 12 hours or as directed by . 14 patch 03/18/19 24 Active methocarbamoL (ROBAXIN) 500 mg tablet Take 1 tablet (500 mg total) by mouth 2 (two) times a day 20 tablet 03/18/19 24 Active tamsulosin (FLOMAX) 0.4 mg extended release capsule Take 1 capsule (0.4 mg total) by mouth daily for 10 days 10 capsule 05/18/19 24 Active nitrofurantoin monohydrate (MACROBID) 100 mg capsule Take 1 capsule (100 mg total) by mouth 2 (two) times a day 10 capsule 05/18/19 24 Active ondansetron ODT (ZOFRAN-ODT) 4 mg disintegrating tablet Take 1 tablet (4 mg total) by mouth every 8 (eight) hours as needed for nausea or vomiting 20 tablet 05/18/19 24 Active HYDROcodone-acetam inophen (NORCO) 5-325 mg per tabletIndications: Pain Take 1 tablet by mouth every 6 (six) hours as needed for pain for up to 10 doses 10 tablet 05/18/19 24 Active Active Problems Problem Noted Date Diagnosed Date Borderline personality disorder 06/06/2022 Assessment & Plan (06/06/2022 4:13 PM CDT): Cheryl is not bipolar. She denies the constellation of sxs encapsulated in time that are required to make that diagnosis. She does not have PTSD, although she has been a victim of trauma. She does have chronic depression, anxiety, and a h/o behavioral patterns that is c/w BPD. She became overwhelmed and impulsively suicidal with plan to OD or cut wrists. She did not act on these impusles. She is future planning, loves her work and children. She says that her housing is safe and stable. She has a psychiatrist and a therapist. She takes her meds as directed. She no longer requires a locked psych unit and will be discharged. She is not a candidate for a 96-hour hold Assessment & Plan (06/06/2022 12:08 PM CDT): #Low mood, passive SI TSH normal Rest of assessment & management as per psychiatry Lice 06/06/2022 Assessment & Plan (06/06/2022 12:11 PM CDT): She had a concern of lice (itchy scalp for 2 days and she thought she found several lice on her scalp while showering). These were seen by the RN -> Permethrin x1 shampoo I have discussed w/ the pharmacist (available meds) & RN (re: any needs for isolation?) re: lice Anemia 06/06/2022 Assessment & Plan (06/06/2022 12:11 PM CDT): Chronic microcytic anemia. Will check iron studies. If discharged today -> ok for outpatient followup Urine abnormality 06/06/2022 Assessment & Plan (06/06/2022 12:13 PM CDT): UA consistent w/ UTI, but she has no dysuria. Reflex to UCx from the ED is still processing. Even if positive, provided she remains asymptomatic, likely would not need ABx (would be asymptomatic bacteriuria) Immunizations Immunization Administration Dates Next Due Tdap 06/23/2018,09/07/2016 Surgical History Surgery Date Site/Laterality Comments APPENDECTOMY 08/18/2014 - 09/17/2014 Medical History Medical History Date Comments Abnormal Pap smear of cervix mil d dysplasia Depression Migraine Kidney stone Pyelonephritis Anxiety Family History Medical History Relation Name Comments Arthritis Father Developmental delay Maternal Grandfather Heart attack Maternal Grandfather Mental illness Maternal Grandfather Vision loss Maternal Grandfather Cancer Maternal Grandmother Asthma Mother COPD Mother Cancer Mother Depression Mother Mental illness Mother Heart attack Paternal Grandfather Vision loss Paternal Grandfather Cancer Paternal Grandmother Depression Paternal Grandmother Relation Name Status Comments Father Maternal Grandfather Maternal Grandmother Mother Paternal Grandfather Paternal Grandmother Social History Tobacco Use Types Packs/Day Years Used Date Smoking Tobacco: Every Day Cigarettes Smokeless Tobacco: Never Tobacco Cessation:Ready to Q uit: No; Counseling Given: Yes Alcohol Use Standard Drinks/Week Comments No 0 (1 standard drink = 0.6 oz pur e alcohol) Social Connection and Isolation Panel Answer Date Recorded In a typical week, how many times do you talk on the phone with family, friends, or neighbors? Once a week 06/07/19 How often do you get togethe r with friends or relatives? Once a week 06/06/2022 How often do you attend chur ch or zoroastrianism services? Never 06/06/2022 Do you belong to any clubs o r organizations such as jewish groups, unions, fraternal or athletic groups, or school groups? No 06/06/2022 How often do you attend meet ings of the clubs or organizations you belong to? Never 06/06/2022 Are you , , di vorced, , never , or living with a partner? Living with partner 06/06/2022 AUDIT-C Answer Date Recorded Q1: How often do you have a drink containing alcohol? Never 06/06/2022 Q2: How many drinks containi ng alcohol do you have on a typical day when you are drinking? Patient does not drink Q3: How often do you have si x or more drinks on one occasion? Never 06/06/2022 Overall Financial Resource Strain (CARDIA) Answe r Date Recorded How hard is it for you to pa y for the very basics like food, housing, medical care, and heating? Not hard at all 06/06/2022 [facility] - Occupational Stress Questionnaire Answer Date Recorded Do you feel stress - tense, restless, nervous, or anxious, or unable to sleep at night because your mind is troubled all the time - these days? Rather much 06/06/2022 Exercise Vital Sign Answer Date Recorde d On average, how many days pe r week do you engage in moderate to strenuous exercise (like a brisk walk)? 0 days 06/06/2022 On average, how many minutes do you engage in exercise at this level? 0 min 06/06/2022 Hunger Vital Sign Answer Date Recorded Within the past 12 months, y ou worried that your food would run out before you got the money to buy more. Never true 06/07/19 23 Within the past 12 months, t he food you bought just didn't last and you didn't have money to get more. Never true 06/06/2022 PRAPARE - Transportation Answer Date Re corded In the past 12 months, has l ack of transportation kept you from medical appointments or from getting medications? No 05/19 In the past 12 months, has l ack of transportation kept you from meetings, work, or from getting things needed for daily living? No 06/06/2022 Housing Stability Vital Sign Answer Jed e Recorded In the last 12 months, was t here a time when you were not able to pay the mortgage or rent on time? No 06/06/2022 Number of Places Lived in the Last Year Not on f ile 06/06/2022 In the last 12 months, was t here a time when you did not have a steady place to sleep or slept in a snf (including now)? No 06/06/2022 Personal Safety Answer Date Recorded Have you ever been in or are you currently in a harmful physical or emotional relationship or is someone making you feel afraid or unsafe? Denies 12/16/2023 Comments No Sex and Gender Information Value Date Recorded Sex Assigned at Not on file Legal Sex Female 11:24 AM [employer] Gender Identity Not on file Sexual Orientation Not on file Obstetrics History Para Term AB IAB SAB Ectopic Multiple Livin g Live Births 3 3 3 0 3 3 Date Outcome GA Total Labor Labor/2nd/3rd Weight Sex Type Anes PTL Rashmi A1 A5 Name Clin 2013 Term 40w 0d F Vag-S pont Epidur al N Livin g 2016 Term 37w 0d F Vag-S pont Epidur al N Livin g Complications:Oligohydramnio s 2018 Term 39w 2d 2h 13m 1h 50m/0h 17m/0h 06m 3.409 kg (7 lb 8.3 oz) F Vag-S pont Epidur al N Livin g 9 9 CHIQUIS S,Ivonne Hsu MD Complications:None Delivery Location:This Facil ity ([facility]) Last Filed Vital Signs Vital Sign Reading Time Taken Comments Blood Pressure 124/80 12/16/2023 12:11 PM CDT Pulse 73 12/16/2023 12:11 PM CDT Temperature 36.8 C (98.3 F) 12/16/2023 12:11 PM CDT Respiratory Rate 16 12/16/2023 12:11 PM CDT Oxygen Saturation 100% 12/16/2023 12:11 PM CDT Inhaled Oxygen Concentration - - Weight 104.3 kg (230 lb) 05/18/2023 2:44 PM CDT Height 160 cm (5' 3) 05/18/2023 2:44 PM CDT Body Mass Index 40.74 05/18/2023 2:44 PM CDT Plan of Treatment Health Maintenance Due Date Last Done Comments Cervical Cancer Screening 1992 Depression Screening 1992 Hepatitis C Screening 1992 Varicella Vaccines (1 of 2 - 13+ 2-dose series) 2005 Regular Well Visit/Exam 18-64 2010 Pneumococcal vaccine <65 (1 of 2 - PCV) 07/29/2011 HPV Vaccines (1 - 3-dose SCD M series) 07/29/2019 Influenza Vaccine (#1) 2024 DTaP/Tdap/Td Vaccine (8 - Td or Tdap) 06/23/2028 06/23/2018, 09/07/2016, 09/13/1997, Additional history exists Hepatitis B Screening Completed 12/25/1993 , 1992, 1992 Insurance [facility] Advance Directives For more information, please contact: [phone] * Full Code (Latest Code Status on File) Date Activated Date Inactivated Comments 06/06/2022 9:59 AM 06/06/2022 7:47 PM * Full Code Date Activated Date Inactivated Comments 07/25/2018 4:26 PM 07/27/2018 3:51 PM * Full Code Date Activated Date Inactivated Comments 07/25/2018 6:43 AM 07/25/2018 4:26 PM Full CPR in ca se of cardiopulmonary arrest Care Teams Network Operations Lead Relationship Specialty Start Date End Date Izabel Hurley NP [address] [place] [id number] PCP - General 06/24/20
--- NOTE | 2024-11-05 12:41 | ED_ITS ---
HPI - URI/Sore Throat General Chief Complaint: Upper Respiratory Infection Stated Complaint: strep symptoms Time Seen by Provider: 11/05/24 12:50 Source: patient Mode of arrival: ambulatory Limitations: no limitations History of Present Illness HPI Narrative: Cheryl is a 34-year-old female patient presenting to the clinic today requesting a strep swab. She reports she has been having some nasal drainage that is chronic problem but her daughter tested positive for strep today at the licensed psychiatric technician's office. She denies having a sore throat. No fevers, chills, body aches. 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 Related Data Home Medications ?Medication ?Instructions ?Recorded ?Confirmed ?Last Taken ?Type No Home Medications 11/05/24 11/05/24 U nknown History Allergies Allergy/AdvReac Type Severity Reaction Status Date / Time No Known Allergies Allergy Verified 11/05/24 12:53 Review of Systems Review of Systems: Pertinent positives per HPI. Patient denies any fever, chills, rash, headache, visual changes, dizziness, cough, shortness of breath, chest pain, palpitations, nausea, vomiting, diarrhea, constipation, abdominal pain, or any urinary issues. [facility] Past Medical History Medical History COVID-19 11/2021 UTI (urinary tract infection) Anxiety and depression Asthma Surgical History Surgical History Hx of appendectomy Social History Social History Smoking packs per day: 0.5 Smoking cigarettes per day: 10.0 Smoking status: Current every day smoker Alcohol intake: unknown Substance use: unknown Gender identity (if verbalized by the patient): Female Comments At the time of my signature, I reviewed and agree with the nursing past medical, surgical, social, and family history. There is no relevant family history pertinent to the patient complaint. Exam Narrative: General: Well-developed, obese, in no apparent distress Head: Normocephalic, atraumatic Eyes: Pupils equally round and reactive to light bilaterally, EOM intact, sclera and conjunctive clear, no discharge, lids normal Ears: TMs intact and clear, ear canals clear, no drainage, grossly hearing normal. Nose: Nares patent, no discharge, no inflammation, no sinus tenderness. Mouth: Oral pharynx without lesions or masses, good dentition, MMM. Neck: Supple, trachea midline, no enlargement of anterior or posterior cervical nodes, no thyroid masses or goiter palpable. Cardio: Regular rate and rhythm, s1 and s2 normal, no murmur appreciated. Resp: Clear to auscultation bilaterally, no rhonchi, rales, wheezing or rubs Course Course Emergency Course: Portions of this record may have been created with voice recognition software. Level of Care: Express Care Visit Vital Signs Vital signs: Vital signs reviewed MDM - URI/Sore Throat MDM Narrative Medical decision making narrative: At the time of visit patient is resting comfortably on the exam table. Patient appears to be nontoxic. Normal exam in the clinic today. Patient is requesting a strep test as she works around people and her child has tested positive for strep today at the licensed psychiatric technician's office. Strep test was ordered Labs: Strep test was negative in the clinic today. We will send for culture Plan: Patient has normal exam in the clinic today. Strep was negative in the clinic. Supportive measures were discussed with the patient and they voiced u nderstanding discharge instructions and agrees to treatment plan. Return precautions reviewed Differential Diagnosis Differential diagnosis: Likely upper respiratory infection, otitis media, sinusitis, viral infection, bronchitis, influenza, pharyngitis and other (COVID) Discharge Plan Discharge Clinical Impression: Normal exam Patient Disposition: Home Condition: Stable Instructions: Antibiotic Form, Normal Exam (ED) Additional Instructions: Strep test was negative in the clinic today. We will send strep for culture. Follow-up with your PCP as needed Patient Language: Guatemalan Prescriptions: No Action No Home Medications Follow-up/Referrals: Hurley,Izabel Damon APN [Primary Care Provider, Unknown] Time of Disposition: 12:58 Quality NIHSS Nursing Documentation ED NIHSS nursing documentation: reviewed/agree
[2024-11-05 12:54] VITALS: BP 144/90; PULSE 77; RESP 18; TEMP 36.4; O2SAT 100
[2024-11-05 13:00] LABS: EDSTREPNEGPOS1 Negative (Negative)
== END 2024-11-05 13:03 | disposition home or self-care (01) ==
PROVIDERS: Emergency Provider Nurse Practitioner Family; PCP Nurse Practitioner Family
DX: Z20.818 Contact with and (suspected) exposure to other bacterial communicable diseases (principal); F17.210 Nicotine dependence, cigarettes, uncomplicated; J45.909 Unspecified asthma, uncomplicated; Z86.16 Personal history of COVID-19
CPT/HCPCS: 87081; 87880; 99213; G0463